=== PATIENT | male | born 1960 | race Caucasian/White ===

== ENCOUNTER 2021-11-10 10:31 | Inpatient (IN) | payer OTHER, MEDICAID ==
[2021-11-10] VITALS (14 sets, daily range): BP systolic 71–124; BP diastolic 43–84
[~2021-11-10] VITALS: Ht 170.2 cm; Wt 134.7 kg
[~2021-11-10 10:31] MED LIST: AMLO10TA88 PO; ASPI-1271 PO; BENA40TA PO; CEPH500T PO; CHOL100084 PO; FERR325E14 PO; HYDR25SU37 RC; LOTC TP; OMEP-303 PO; TAMS0.4C96 PO; TUCKS TP; [UNRECOGNIZED DRUG - CODE] NS; [UNRECOGNIZED DRUG - CODE] TP
--- NOTE | 2021-11-10 10:32 | NUR ---
PT W/C ASSISTED TO BED 01.
[2021-11-10] MEDS ORDERED: NACL 0.9% 1,000 ML IV ONE (10:40)
[2021-11-10] MEDS ORDERED: MORPHINE SULFATE 4 MG/ML SYR ONE (10:46)
[2021-11-10] MEDS ORDERED: LORazepam 1 MG TAB ONE (10:52)
[2021-11-10] MEDS ORDERED: LORazepam 2 MG/ML VIAL ONE (10:52)
[2021-11-10] MEDS ORDERED: LORazepam 2 MG/ML VIAL IVP ONE ×2 (10:55→11:15)
[2021-11-10 11:05] LABS: BASOPHILS # (AUTO) 0.1 K/uL (0.00-0.22); BASOPHILS % (AUTO) 0.4 % (0.0-2.0); EOSINOPHILS # (AUTO) 0.1 K/uL (0-0.4); EOSINOPHILS % (AUTO) 0.4 % (0.0-4.0); HEMOGLOBIN 15.9 g/dL (12.0-18.0); LYMPHOCYTES # (AUTO) 1.3 K/uL (2.0-11.5); LYMPHOCYTES % (AUTO) 8.8 % (20.5-51.1); MEAN CORPUSCULAR HEMOGLOBIN 29 pg (27-31); MEAN CORPUSCULAR HGB CONC 33 g/dL (33-37); MEAN CORPUSCULAR VOLUME 87.3 fL (80-94); MONOCYTES # (AUTO) 0.3 K/uL (0.8-1.0); MONOCYTES % (AUTO) 2.3 % (1.7-9.3); NEUTROPHILS # (AUTO) 13.3 K/uL (1.8-7.7); NEUTROPHILS % (AUTO) 88.1 % (42.2-75.2); PLATELET COUNT (AUTO) 69 K/uL (140-450); RED BLOOD CELL COUNT(AUTO) 5.49 MIL/uL (4.20-6.10); WHITE BLOOD COUNT (AUTO) 15.1 K/uL (4.8-10.8)
[2021-11-10] MEDS ORDERED: MORPHINE SULFATE 4 MG/ML SYR IVP ONE (11:15)
[2021-11-10] MEDS ORDERED: PIPERACILLIN/TAZOBACTAM 3.375 GM in DEXTROSE 5% 50 ML IV ONE (11:15)
[2021-11-10] MEDS ORDERED: ACETAMINOPHEN EXTRA STRENGTH 500 MG TAB PO ONE (11:15)
[2021-11-10 11:19] LABS: LIPASE 85 U/L (73-393)
[2021-11-10 11:21] LABS: ALBUMIN 4.5 g/dL (3.4-5.0); ANION GAP 10.2 (8-16); CARBON DIOXIDE 31.9 mmol/L (21-32); POTASSIUM 4.1 mmol/L (3.5-5.1); TOTAL BILIRUBIN 1.7 mg/dL (0.0-1.0)
[2021-11-10] MEDS ORDERED: PIPERACILLIN/TAZOBACTAM 3.375 GM VIAL IV ONE (11:26)
--- NOTE | 2021-11-10 11:27 | NUR ---
PT MOVED TO BED 10.
[2021-11-10 11:38] LABS: APPEARANCE,URINE CLEAR (CLEAR); BILIRUBIN,URINE NEGATIVE (NEGATIVE); BLOOD, URINE NEGATIVE (NEGATIVE); COLOR,URINE YELLOW (YELLOW); LEUKOCYTE ESTERASE ,URINE NEGATIVE (NEGATIVE); NITRITE, URINE NEGATIVE (NEGATIVE); UGLUCOSE 3+ (NEGATIVE)
--- NOTE | 2021-11-10 11:47 | NUR ---
61Y/O MALE BIB SELF C/O OF FEVER, CHILLS, LEG PAIN. ABDOMEN IS ROUND, FIRM, [place] RED SPOTS, AND A LARGE BRUISE NOTED ON THE RIGHT LOWER ABDOMEN. CANNOT RECALL ANY MEDS, DIABETIC, BS 90 AT HOME 120 AT TRIAGE. PITTING EDEMA +3 IN THE RIGHT LOWER EXTREMITY, NO RIGHT TOE. A/OX3, ABLE TO STATE NAME, DATE AND WHERE HE IS. DOES NOT KNOW WHAT IS GOING ON. TEMP AT TRIAGE 102, COOLING MEASURES DONE, GIVEN TYLENOL. PMH: DM, HTN, HEART SURGERY, SLEEP APNEA Addendum: 11/10/21 at 1253 by MNURBMD AMEND, INCLUDE HISTORY OF CHF
[2021-11-10 11:55] LABS: OTHER CASTS, URINE None Seen /LPF (None Seen); RBC,URINE 0-5 /HPF (0-5); WBC,URINE 0-5 /HPF (0-5)
[2021-11-10 11:58] LABS: BARBITURATE, URINE NEGATIVE ng/ml (NEG <=200); BENZODIAZEPINE, URINE NEGATIVE ng/mL (NEG <=200); CANNABINOID, URINE NEGATIVE ng/mL (NEG <=50); COCAINE, URINE NEGATIVE ng/mL (NEG <=300); OPIATE, URINE POSITIVE ng/mL (NEG <=2000); PHENCYCLIDINE SCREEN,URINE NEGATIVE ng/mL (NEG <=25)
--- NOTE | 2021-11-10 12:02 | NUR ---
PT TAKEN TO BED CT VIA IGGY
--- NOTE | 2021-11-10 12:36 | NUR ---
RECHECKED TEMP 100.2 ORAL, DR SHAIKH MADE AWARE
--- NOTE | 2021-11-10 12:36 | NUR ---
RAD AT BEDSIDE
--- NOTE | 2021-11-10 12:42 | NUR ---
RT AT BEDSIDE
--- NOTE | 2021-11-10 12:45 | NUR ---
PT PLACED ON BIPAP 15/6 16 35% PER DR. SHAIKH D/T ABG RESULT PH 7.268 PCO2 60.7. PT IS TOLERATING WELL AT THIS TIME.
[2021-11-10] MEDS ORDERED: VIT D3 PO (12:50)
[2021-11-10] MEDS ORDERED: METO50TE2 PO (12:50)
[2021-11-10] MEDS ORDERED: EMPA25TA PO (12:50)
[2021-11-10] MEDS ORDERED: VIT D (12:50)
--- NOTE | 2021-11-10 12:58 | NUR ---
PT PLACED ON A BIPAP
--- NOTE | 2021-11-10 13:09 | NUR ---
SPOKE TO JUNG BRIM SETTER OF [facility]
--- NOTE | 2021-11-10 13:22 | NUR ---
DR SHAIKH MADE AWARE, PT TEMP 100.8, ORDERS FOR IBUPROFEN 600MG PO RECEIVED
[2021-11-10] MEDS ORDERED: IBUPROFEN 600 MG TAB PO ONE (13:25)
[2021-11-10] MEDS ORDERED: GENTAMICIN 120 MG in DEXTROSE 5% 100 ML IV ONE (13:30)
[2021-11-10] MEDS ORDERED: GENTAMICIN 80 MG/2 ML VIAL ONE (13:36)
[2021-11-10] MEDS ORDERED: POTASSIUM CHLORIDE 10 MEQ TABER PO PRN (14:50)
[2021-11-10] MEDS ORDERED: MAGNESIUM OXIDE 400 MG TAB PO PRN (14:50)
[2021-11-10] MEDS ORDERED: HYDROcodone/APAP 5/325 MG 1 TAB TAB PO PRN (14:50)
[2021-11-10] MEDS ORDERED: ONDANSETRON 4 MG/2 ML VIAL IVP PRN (14:50)
[2021-11-10] MEDS ORDERED: MORPHINE SULFATE 4 MG/ML SYR IVP PRN (14:50)
--- NOTE | 2021-11-10 15:00 | NUR ---
Patient will be admitted to care of ROBERT JETT. Admited to ICU. Will go to room ICU 2. Belongings list completed. Report to CHERIE OROZCO.
--- NOTE | 2021-11-10 15:08 | NUR ---
PT ARRIVED TO UNIT ICU2. RECEIVED BEDSIDE REPORT FROM TAYLOR RENTERIA RN FOR CONTINUITY OF CARE. PT SUPINE IN THE BED. PT LETHARGIC, AAOX3. EYES CLOSED, PERRLA. ON BIPAP, FIO2 35%, R 20, IPAP 14, EPAP 6. PT BREATHING LABORED, SNORING. SR W 1ST DEG HB AND BBB ON BEDSIDE MONITOR, HR 97. BOWEL SOUNDS ACTIVE, LAST BM YESTERDAY AM PER . CONTINENT OF BOWEL AND BLADDER, URINAL AT BEDSIDE. GENERALIZED WEAKNESS. R AC 18G SALINE LOCK, PATENT INTACT. SKIN INTACT. RLE EDEMATOUS +4 AND BIG TOE AMPUTATED. SAFETY PRECAUTIONS MET. STANDARD PRECAUTIONS IN PLACE. INITIAL ASSESSMENT COMPLETE, WILL CONTINUE TO CLOSELY MONITOR.
--- NOTE | 2021-11-10 15:30 | NUR ---
PT AT BEDSIDE
--- NOTE | 2021-11-10 15:45 | NUR ---
US AT BEDSIDE
--- NOTE | 2021-11-10 16:00 | NUR ---
PT ARRIVED TO UNIT ICU2. RECEIVED BEDSIDE REPORT FROM TAYLOR RENTERIA RN FOR CONTINUITY OF CARE. PT SUPINE IN THE BED. PT LETHARGIC, AAOX3. EYES CLOSED, PERRLA. ON BIPAP, FIO2 35%, R 20, IPAP 14, EPAP 6. PT BREATHING LABORED, SNORING. SR W 1ST DEG HB AND BBB ON BEDSIDE MONITOR, HR 97. BOWEL SOUNDS ACTIVE, LAST BM YESTERDAY AM PER . CONTINENT OF BOWEL AND BLADDER, URINAL AT BEDSIDE. GENERALIZED WEAKNESS. R AC 18G SALINE LOCK, PATENT INTACT. SKIN INTACT. RLE EDEMATOUS +4 AND BIG TOE AMPUTATED. SAFETY PRECAUTIONS MET. STANDARD PRECAUTIONS IN PLACE. INITIAL ASSESSMENT COMPLETE, WILL CONTINUE TO CLOSELY MONITOR. Addendum: 11/10/21 at 1850 by Coty Greer RN WRONG TIME.
--- NOTE | 2021-11-10 16:20 | NUR ---
PT AT BEDSIDE. UPDATED REGARDING PT CONDITION, ALL QUESTIONS ANSWERED AT THIS TIME. Addendum: 11/10/21 at 1851 by Coty Greer RN WRONG TIME
[2021-11-10] MEDS ORDERED: FUROSEMIDE 40 MG/4 ML VIAL IVP SCH (17:15)
--- NOTE | 2021-11-10 17:15 | NUR ---
DR TELLO AT BEDSIDE ASSESSING PT AND SPEAKING WITH PT . ORDERS RECEIVED.
[2021-11-10] MEDS ORDERED: acetaZOLAMIDE sodium 500 MG VIAL IVP SCH (17:30)
--- NOTE | 2021-11-10 17:38 | NUR ---
1738 20 MG ETOMIDATE IN PER DR TELLO ORDER. 1739 60MG SUCC IN PER DR TELLO ORDER. 1740 PT INTUBATED TAPED [address] OSMAN VERSED AND FENTANYL FOR SEDATION DRIPS.
[2021-11-10] MEDS ORDERED: fentaNYL citrate 2.5 MG in NACL 0.9% 200 ML IV PRN (17:45)
--- NOTE | 2021-11-10 17:45 | NUR ---
PT INTUBATED WITH A 8.0 ETT SECURED @25 TEETH/GUM. ETT PLACEMENT CONFIRMED WITH CO2 DETECTOR COLOR CHANGE AND BILATERAL BREATH SOUNDS. CXR TO BED ORDERED FOR PROPER PLACEMENT.
--- NOTE | 2021-11-10 17:53 | NUR ---
PT PLACED ON VENT, SETTINGS AC 20, VT 500, PEEP 8 AND FIO2 70%. ALARMS ON AND FUNCTIONING. ETT IS SECURE WITH A PATENT AIRWAY SECURED @25 TEETH/GUM, CXR TO BE ORDERED.
[2021-11-10] MEDS ORDERED: AZITHROMYCIN 500 MG in DEXTROSE 5% 250 ML IV SCH (18:00)
[2021-11-10] MEDS: DEXT 5% /NACL 0.9% 1,000 ML IV SCH (18:29)
[2021-11-10] MEDS: LORazepam 2 MG/ML VIAL IVP PRN (18:36)
[2021-11-10] MEDS: NOREPINEPHRINE 4 MG in DEXTROSE 5% 250 ML IV PRN (19:00)
[2021-11-10] MEDS: MIDAZOLAM MDV 100 MG in NACL 0.9% 80 ML IV PRN (19:00)
--- NOTE | 2021-11-10 19:05 | NUR ---
ENDORSED BEDSIDE REPORT TO ED HOLT RN FOR CONTINUITY OF CARE.
--- NOTE | 2021-11-10 19:30 | NUR ---
RECEIVED REPORT FROM BERTRAND OROZCO; ASSUMED CARE OF PT.INITIAL ASSESSMENT DONE.PT SEDATED.PT ORALLY INTUBATED AC V/C FIO2 70% TV 550 RATE 20 PEEP8.PERIPHERAL IV TO RT AC G18 INTACT.INFUSING ORDERED IVF, LEVOPHED 4MG IN 250ML D5W AT 5MCG/MIN, VERSED DRIP AT 1MG/HR.RASS -2.NGT TO LT NARES INTACT.CLAMPED.MAINTAINED ON NPO.W/ACTIVE BOWEL SOUNDS TO ALL QUADRANTS.W/PEDROZA CATHETER TO BSD DRAINING SMALL AMT OF CLEAR PINKISH COLORED URINE.W/BILATERAL SOFT WRIST RESTRAINTS.NO INJURIES NOTED AT THIS TIME.SKIN INTACT.BRUISING TO LT ABDOMEN ALSO NOTED.FLACC 0. Addendum: 11/11/21 at 0053 by Jazmine Martell RN RIGHT GREAT TOE AMPUTATION. [email or web address]
--- NOTE | 2021-11-10 19:43 | NUR ---
SPOKE W/ DR PINTO - [facility] MENTAL HEALTH AIDES TEACHER ) AND REPORTED ABG RESULTS FOR POST INTUBATION ABG RESULTS ARE FOLLOWS .. PH 7.282 CO2 64.3 HCO3 29.[address] PINTO INCREASE Vt ( 550 ) AND REPEAT ABG IN 3H
--- NOTE | 2021-11-10 19:45 | NUR ---
PT SEDATED;NOT MOVING; APPEARS COMFORTABLE, BILATERAL SOFT WRIST RESTRAINTS REMOVED, WILL CONTINUE TO CLOSELY MONITOR PT
--- NOTE | 2021-11-10 20:02 | NUR ---
VT HAS BEEN CHANGED FROM 500 TO 550 AND ABG HAS BEEN ORDERED FOR 3H POST VT CHANGE (23:00) NO OTHER CHANGES TO VENT AT THIS TIME VENT SETTINGS CURRENTLY AC/VC 550 +8 f20 70% VENT ALARMS REMAIN ON AND AUDIBLE VENT PLUGGED INTO RED OUTLET AMBU IS AT BEDSIDE WILL CONTINUE TO MONITOR
--- NOTE | 2021-11-10 20:28 | NUR ---
PHONE CALL FROM RADIOLOGIST, KYA GOETZ, HE SAID ETT IS TOO DEEP; TO WITHDRAW 3CM TO 4CM; CALLED RT SIMON
--- NOTE | 2021-11-10 20:40 | NUR ---
ETT FOUND SECURED @ 26CM AND WAS WITHDRAWN 3CM TO 23CM PER CXR TUBE PLACEMENT INTERPRETATION PENDING CXR TO CONFIRM NEW ETT PLACEMENT
--- NOTE | 2021-11-10 20:45 | NUR ---
ETT ADJUSTED BY RT SMION, CXR ORDERED.
[2021-11-10] MEDS: metroNIDAZOLE 500 MG TAB PO SCH (21:28)
[2021-11-10] MEDS: fentaNYL citrate - 50mL vial 2.5 MG in NACL 0.9% 200 ML IV PRN (22:47)
--- NOTE | 2021-11-10 23:10 | NUR ---
CALLED AND SPOKE W/ TITO @ [facility] [phone] AWAITING CALL BACK FROM EMERGENCY MEDICAL DISPATCHER TO REPORT ABG RESULTS ABG RESULTS ARE FOLLOWS .. PH 7.304 CO2 53.5 HCO3 26 PO2 52.9
[2021-11-11] VITALS (34 sets, daily range): BP systolic 97–131; BP diastolic 46–94
--- NOTE | 2021-11-11 | NUR ---
FAMILY STILL AT BEDSIDE, PT AWAKE; REORIENTED, TRYING TO PULL LINES, BILATERAL SOFT WRIST RESTRAINTS ORDERED, IN PLACE.WILL CONTINUE TO MONITOR PT
--- NOTE | 2021-11-11 02:41 | NUR ---
RLE SWELLING, TIGHTNESS, AND WARM TO TOUCH; PER PATIENT'S SON, PATIENT WITH HISTORY OF MELANOMA AND REMOVAL OF LYMPH NODES IN THE RLE. WILL ENDORSE TO DAY SHIFT TO CONTACT MD AND REQUEST ORDER FOR VENOUS DOPPLER TO R/O DVT. [email or web address]
--- NOTE | 2021-11-11 03:40 | NUR ---
REPLACED LEVOPHED, WILL RUN AT 4MG/250ML Addendum: 11/11/21 at 0523 by Jazmine Martell RN [email or web address] Addendum: 11/11/21 at 0631 by Jazmine Martell RN LEVOPHED 4MG IN 250ML D5W WILL RUN AT 7MCG/MIN
[2021-11-11] MEDS ORDERED: NOREPINEPHRINE 4 MG/4 ML VIAL IV ONE (03:54)
[2021-11-11] MEDS: NOREPINEPHRINE 4 MG in DEXTROSE 5% 250 ML IV PRN ×2 (04:13→18:28)
--- NOTE | 2021-11-11 04:30 | NUR ---
PROVIDED AM CARE TO PATIENT. PATIENT WITH EXCESSIVE MOTOR AROUND NECK AND BACK. GLUCOSE CHECKED = 131. CHARGE NURSE NOTIFIED Addendum: 11/11/21 at 0604 by Jazmine Martell RN PATIENT DIAPHORETIC, PATIENT OPEN EYES, TRACKING, ABLE TO NOD TO QUESTIONS REGARDING DIABETES AND IF HE TAKES INSULIN AT HOME. PATIENT WAS PROVIDED WITH CLEAN AND DRY BEDDING, AND GOWN. ERROR WITH CHARTING RE: EXCESSIVE MOTOR AROUND NECK AND BACK.
[2021-11-11] MEDS: metroNIDAZOLE 500 MG TAB PO SCH ×3 (04:40→21:11)
--- NOTE | 2021-11-11 06:00 | NUR ---
PEDROZA BAG DRAINED, 500 ML OF URINE. [email or web address]
--- NOTE | 2021-11-11 06:46 | NUR ---
NOTED SWELLING IN RLE NOW EXTENDING TO MID THIGH, NO CHANGE IN WARMTH. [email or web address]
[2021-11-11 06:54] LABS: ALBUMIN 3.2 g/dL (3.4-5.0); ANION GAP 7.7 (8-16); CARBON DIOXIDE 31.2 mmol/L (21-32); MAGNESIUM 1.8 mg/dL (1.8-2.4); POTASSIUM 3.9 mmol/L (3.5-5.1); TOTAL BILIRUBIN 1.7 mg/dL (0.0-1.0)
--- NOTE | 2021-11-11 07:10 | NUR ---
RECEIVED PT SEDATED. ET TUBE TO VENT SETTINGS AC VC VT 550 RATE 20 PEEP 8 FIO2@70%. SINUS RHYTHM WITH BBB ON MONITOR. NGTUBE ON LEFT NARE INTACT AND CLAMPED. PEDROZA CATHETER INTACT AND DRAINING TO BSD. PICC LINE ON RIGHT UPPER ARM INTACT AND INFUSING LEVOPHED @7MCG/MIN, FENTANYL @ 0.5 MCG/KG/HR, AND VERSED @3MG/HR. PERIPHERAL IV 18 GAUGE ON RAC INTACT AND PATENT INFUSING D5NS @60ML/HR. PT WITH RIGHT LOWER EXTREMITY SWELLING. SAFETY PRECAUTIONS IN PLACE.
--- NOTE | 2021-11-11 07:16 | NUR ---
ENDORSED CARE OF PATIENT TO ERNESTO DUNN. [email or web address]
[2021-11-11 07:24] LABS: HEMATOCRIT 43.3 % (36-52); HEMOGLOBIN 14.2 g/dL (12.0-18.0); MEAN CORPUSCULAR HEMOGLOBIN 29 pg (27-31); MEAN CORPUSCULAR HGB CONC 33 g/dL (33-37); MEAN CORPUSCULAR VOLUME 87.9 fL (80-94); PLATELET COUNT (AUTO) 72 K/uL (140-450); RED BLOOD CELL COUNT(AUTO) 4.92 MIL/uL (4.20-6.10); RED CELL DISTRIBUTION WIDTH 15.2 % (11.6-13.7); WHITE BLOOD COUNT (AUTO) 21.4 K/uL (4.8-10.8)
--- NOTE | 2021-11-11 08:05 | NUR ---
FAMILY AT BEDSIDE.
[2021-11-11 08:15] LABS: LYMPHOCYTES % (MANUAL) 4 % (20-46); MONOCYTES % (MANUAL) 7 % (5-12)
--- NOTE | 2021-11-11 09:20 | NUR ---
SHARRON CAR PORTER FROM [facility] CALLED AND PROVIDED PHONE NUMBER .
--- NOTE | 2021-11-11 09:33 | NUR ---
SEEN AND EXAMINED BY DR. VALIENTE. NEW ORDERS RECEIVED. Addendum: 11/11/21 at 1232 by Rachna Hoover RN REPORTED INCREASED RIGHT LEG SWELLING TO DR. VALIENTE. REPORTED GRAM POSITIVE COCCI BLOOD CULTURE TO DR. VALIENTE. NEW ORDER RECEIVED TO STOP ZITHROMAX AND START LINEZOLID 600MG Q12H.
[2021-11-11] MEDS ORDERED: INSULIN LISPRO SLIDING SCALE 100 UNITS/ML VIAL SUBQ PRN (09:40)
[2021-11-11] MEDS: DEXT 5% /NACL 0.9% 1,000 ML IV SCH (11:04)
[2021-11-11] MEDS: LINEZOLID 600MG PREMIX 300 ML IV SCH ×2 (11:04→21:11)
[2021-11-11] MEDS: BLOOD GLUCOSE MONITORING 1 DEV DEV FS SCH ×3 (11:14→21:12)
--- NOTE | 2021-11-11 12:32 | NUR ---
CHEST XRAY BEING DONE AT BEDSIDE.
--- NOTE | 2021-11-11 14:30 | NUR ---
DR. NIETO AT BEDSIDE EXAMINING PT. SON AT BEDSIDE. ALL QUESTIONS ANSWERED.
[2021-11-11] MEDS: ACETAMINOPHEN 325 MG TAB PO PRN (16:13)
--- NOTE | 2021-11-11 16:13 | NUR ---
PT WITH LOW GRADE FEVER. PLEASE VIEW VITAL SIGNS. TYLENOL 650 MG GIVEN PER MD ORDER. COOLING MEASURES IN PLACE. WILL CONTINUE TO MONITOR.
--- NOTE | 2021-11-11 17:30 | NUR ---
DR. RASHID AT BEDSIDE EXAMINING PATIENT WITH AT BEDSIDE. ALL QUESTIONS ANSWERED. RECEIVED NEW ORDER FOR ECHOCARDIOGRAM.
--- NOTE | 2021-11-11 19:10 | NUR ---
ENDORSED TO BRAILLE TYPIST NURSE YA FOR CONTINUITY OF CARE.
[2021-11-11] MEDS: MIDAZOLAM MDV 100 MG in NACL 0.9% 80 ML IV PRN (19:15)
--- NOTE | 2021-11-11 19:30 | NUR ---
ASSUMED CARE OF PT.INITIAL ASSESSMENT DONE.PT SEDATED RASS -2 MAINTAINED, OPEN EYES TO TOUCH AND VOICE.SR/SA NOTED ON MONITOR W/BBB W/ PVC'S.ORALLY INTUBATED FIO2 60% TV550 RATE 20 PEEP 6. W/BRANDON PICC LINE INTACT, GOOD BLOOD RETURN TO BOTH PORTS INFUSING ORDERED IVF AT 60ML/HR, VERSED DRIP AT 5MG/HR, FENTANYL AT 1MCG/KG/HR AND LEVOPHED 4MG IN 250ML D5W AT 1MCG/MIN.W/NGT TO LT NARES INTACT.PLACEMENT VERIFIED.NO RESIDUALS.ON CONTINUOUS NGT FDG GLUCERNA 1.2 AT 20ML/HR W/ORDERED WATER FLUSH.ABDOMEN SOFT NON TENDER.W/PEDROZA CATHETER TO BSD DRAINING SMALL AMT OF ERIC COLORED URINE.SKIN INTACT, BRUISING TO LT ABDOMEN ALSO NOTED.SWELLING ON THE RT LEG ALSO NOTED, RT BIG TOE AMPUTEE.W/BILATERAL SOFT WRIST RESTRAINTS.NO INJURIES NOTED.SAFETY PRECAUTION IN PLACE.WILL CONTINUE TO CLOSELY MONITOR PT
--- NOTE | 2021-11-11 19:51 | NUR ---
robotic maintenance technicianayesha king at bedside, ongoing echocardiogram at this time
--- NOTE | 2021-11-11 22:00 | NUR ---
PTS FAMILY IN AND OUT OF THE UNIT; UPDATED ON PTS PRESENT CONDITION.PT REMAINS SEDATED AND VENTILATED.FIO2 60%.FLACC 0.
[2021-11-11] MEDS: fentaNYL citrate - 50mL vial 2.5 MG in NACL 0.9% 200 ML IV PRN (23:32)
[2021-11-12] VITALS (40 sets, daily range): BP systolic 92–146; BP diastolic 51–88
--- NOTE | 2021-11-12 | NUR ---
ORAL CARE USING VAP KIT RENDERED.PT VERY AGITATED; TRYING TO GET OUT OF BED.SEDATION TITRATED ORDERED.SEE IV SPREADSHEET.
[2021-11-12] MEDS: LORazepam 2 MG/ML VIAL IVP PRN (00:23)
--- NOTE | 2021-11-12 01:45 | NUR ---
PT BECOMING RESTLESS AGAIN; VERSED DRIP INCREASED PER PROTOCOL; RT SIMON AT BEDSIDE.FAMILY AT BEDSIDE.WILL CONTINUE TO CLOSELY MONITOR PT
--- NOTE | 2021-11-12 01:59 | NUR ---
PT IS IRRITABLE, SOMEWHAT RESTLESS. MODE WAS CHANGED FROM VC 550 +6 f 20 TO PRVC 550 +6 f 20 FOR PT COMFORT AND PEAK PRESSURES. PT TOLERATING A LITTLE BETTER, APPEARS MORE COMFORTABLE, AND RECEIVING ADEQUATE VOLUMES. PT IS STILL SOMEWHAT AGITATED. VENT ALARMS REMAIN ON AND AUDIBLE. FAMILY IS AT BEDSIDE. WILL CONTINUE TO MONITOR.
--- NOTE | 2021-11-12 04:00 | NUR ---
AFEBRILE.ORAL SECRETIONS SUCTIONED.FLACC 0.RASS-2; REPOSITIONED
[2021-11-12] MEDS: DEXT 5% /NACL 0.9% 1,000 ML IV SCH ×2 (05:08→19:55)
[2021-11-12] MEDS: metroNIDAZOLE 500 MG TAB PO SCH ×3 (05:09→20:18)
--- NOTE | 2021-11-12 05:29 | NUR ---
PT CURRENTLY RESTING COMFORTABLY AND RECEIVING ADEQUATE VOLUMES. PT REMAINS ON PRVC. ALARMS REMAIN ON AND AUDIBLE. VENT IS PLUGGED INTO RED OUTLET. AMBU BAG AT BEDSIDE. ETT REMAINS PATENT/SECURED AT 23CM. WILL CONTINUE TO MONITOR.
[2021-11-12 05:40] LABS: BASOPHILS % (AUTO) 0.3 % (0.0-2.0); EOSINOPHILS # (AUTO) 0.1 K/uL (0-0.4); EOSINOPHILS % (AUTO) 0.5 % (0.0-4.0); HEMATOCRIT 40.1 % (36-52); HEMOGLOBIN 13.1 g/dL (12.0-18.0); LYMPHOCYTES # (AUTO) 0.5 K/uL (2.0-11.5); LYMPHOCYTES % (AUTO) 4.4 % (20.5-51.1); MEAN CORPUSCULAR HEMOGLOBIN 29 pg (27-31); MEAN CORPUSCULAR HGB CONC 33 g/dL (33-37); MEAN CORPUSCULAR VOLUME 87.8 fL (80-94); MONOCYTES # (AUTO) 0.8 K/uL (0.8-1.0); MONOCYTES % (AUTO) 6.7 % (1.7-9.3); NEUTROPHILS # (AUTO) 10.1 K/uL (1.8-7.7); PLATELET COUNT (AUTO) 53 K/uL (140-450); RED BLOOD CELL COUNT(AUTO) 4.57 MIL/uL (4.20-6.10); RED CELL DISTRIBUTION WIDTH 15.6 % (11.6-13.7); WHITE BLOOD COUNT (AUTO) 11.4 K/uL (4.8-10.8)
[2021-11-12] MEDS: BLOOD GLUCOSE MONITORING 1 DEV DEV FS SCH ×3 (06:00→17:33)
--- NOTE | 2021-11-12 06:00 | NUR ---
BS CHECKED 146 NO INSULIN COVERAGE REQUIRED.PT REMAINS INTUBATED PRVC MODE FIO2 60% TV550 RATE 20 PEEP6, STILL SEDATED W/RASS -2 AT THIS TIME.SKIN REMAINS INTACT.FLACC 0
[2021-11-12 06:11] LABS: ALBUMIN 2.8 g/dL (3.4-5.0); ANION GAP 8.1 (8-16); CARBON DIOXIDE 30.2 mmol/L (21-32); CREATININE 0.9 mg/dL (0.6-1.3); POTASSIUM 4.3 mmol/L (3.5-5.1)
[2021-11-12 06:48] LABS: NEUTROPHILS % (AUTO) 88.1 % (42.2-75.2)
--- NOTE | 2021-11-12 07:30 | NUR ---
RECEIVED REPORT FROM YANET PANDYA FOR CONTINUITY OF CARE.
--- NOTE | 2021-11-12 07:45 | NUR ---
A&OX0, PERRL. ETT TO VENT, PRVC VT 550, FIO2 60%, RR 20, PEEP 6. RESPIRATIONS EVEN AND UNLABORED. SINUS ARRHYTHMIA WITH 1ST DEGREE HEART BLOCK, BUNDLE BRANCH BLOCK AND OCCASIONAL PVC'S AND PAC'S. CAP REFILL <3 SECONDS. NGT LEFT NARE TO FEEDING, GLUCERNA @40ML/HR. F/C TO GRAVITY DRAINING CLEAR ERIC URINE. BILATERAL SOFT WRIST RESTRAINTS WITH NO BRUISING, SKIN IS INTACT. BRANDON PICC INFUSING VERSED @8MG/HR, D5NS @60ML/HR, FENTANYL @1MCG/KG/HR. SKIN IS INTACT. BILATERAL LOWER LEG CELLULITIS, EDEMA ON RIGHT LEG. SAFETY PRECAUTIONS IN PLACE, CALL LIGHT WITHIN REACH, BED IN LOWEST POSITION.
--- NOTE | 2021-11-12 08:50 | NUR ---
SEEN AND EXAMINED BY DR VALIENTE. ORDERS RECEIVED.
[2021-11-12] MEDS ORDERED: POTASSIUM CHLORIDE 20% 40 MEQ/15 ML UDC GT PRN (08:55)
[2021-11-12] MEDS: LINEZOLID 600MG PREMIX 300 ML IV SCH ×2 (09:06→20:18)
[2021-11-12] MEDS: MIDAZOLAM MDV 100 MG in NACL 0.9% 80 ML IV PRN (11:00)
--- NOTE | 2021-11-12 11:00 | NUR ---
FAMILY AT BEDSIDE.
--- NOTE | 2021-11-12 11:39 | NUR ---
11/12/2021 RD INITIAL ASSESSMENT COMPLETED. PLEASE REFER TO NUTRITION ASSESSMENT UNDER CARE ACTIVITY FOR ESTIMATED NUTRITIONAL NEEDS. 1.RECOMMEND LOWERING TF GOAL RATE TO 60ML/HR PT TOLERATES, 80ML/HR WILL GIVE EXCESS CALORIES. RECOMMEND GLUCERNA 1.2 @ 60ML/HR WITH FWF 100 ML Q6H. THIS WILL PROVIDE 1728 KCAL, 86.4 GRAMS OF PROTEIN, MEETING 100% OF ESTIMATED ENERGY NEEDS. 2.MONITOR GASTRIC RESIDUALS AND BLOOD GLUCOSE. 3.RD TO FOLLOW-UP IN 2-3 DAYS PATIENT IS HIGH RISK. SWETA SCHILLING RD
--- NOTE | 2021-11-12 11:45 | NUR ---
FEEDING INCREASED TO 50ML/HR FOR A GOAL OF 60ML/HR. PT TOLERATING FEEDING WELL.
--- NOTE | 2021-11-12 12:00 | NUR ---
NGT RESIDUAL 5ML. FEEDING RESUMED.
--- NOTE | 2021-11-12 12:17 | NUR ---
SEEN AND EXAMINED BY DR. NIETO.
--- NOTE | 2021-11-12 13:45 | NUR ---
FAMILY AT BEDSIDE
[2021-11-12] MEDS: ACETAMINOPHEN 325 MG TAB PO PRN (17:29)
--- NOTE | 2021-11-12 17:30 | NUR ---
CATHETER CARE PERFORMED. CLEANED AND REPOSITIONED. AT BEDSIDE.
--- NOTE | 2021-11-12 19:05 | NUR ---
ENDORSED REPORT TO YA HOLT RN FOR CONTINUITY OF CARE.
--- NOTE | 2021-11-12 19:30 | NUR ---
ASSUMED CARE OF PT.INITIAL ASSESSMENT DONE.SR NOTED ON MONITOR W/BBB W/ PVC'S.ORALLY INTUBATED PRVC MODE FIO2 45% TV550 RATE 20 PEEP 6. W/BRANDON PICC LINE INTACT, GOOD BLOOD RETURN TO BOTH PORTS INFUSING ORDERED IVF AT 60ML/HR, VERSED DRIP AT 8 MG/HR, FENTANYL AT 1MCG/KG/HR .W/NGT TO LT NARES INTACT.PLACEMENT VERIFIED.30ML RESIDUALS NOTED.ON CONTINUOUS NGT FDG GLUCERNA 1.2 AT 60ML/HR W/ORDERED WATER FLUSH.ABDOMEN SOFT NON TENDER.W/PEDROZA CATHETER TO BSD DRAINING SMALL AMT OF ERIC COLORED URINE.SKIN INTACT, BRUISING TO LT ABDOMEN ALSO NOTED.SWELLING ON THE RT LEG ALSO NOTED, RT BIG TOE AMPUTEE.W/BILATERAL SOFT WRIST RESTRAINTS.NO INJURIES NOTED.SAFETY PRECAUTION IN PLACE.WILL CONTINUE TO CLOSELY MONITOR PT
[2021-11-12] MEDS: fentaNYL citrate - 50mL vial 2.5 MG in NACL 0.9% 200 ML IV PRN (19:57)
--- NOTE | 2021-11-12 20:00 | NUR ---
ORAL CARE USING VAP KIT RENDERED.PT REPOSITIONED.FLACC 0
[2021-11-13] VITALS (32 sets, daily range): BP systolic 98–152; BP diastolic 50–93
--- NOTE | 2021-11-13 | NUR ---
ORAL CARE USING VAP KIT RENDERED.FLACC 0.REPOSITIONED
[2021-11-13] MEDS: BLOOD GLUCOSE MONITORING 1 DEV DEV FS SCH ×3 (00:13→11:49)
[2021-11-13] MEDS: MIDAZOLAM MDV 100 MG in NACL 0.9% 80 ML IV PRN (00:57)
--- NOTE | 2021-11-13 02:00 | NUR ---
PTS CONDITION REMAINS UNCHANGED.STILL ON FENTANYL AND VERSED DRIPS.VENT FIO2 STILL AT 45%.FLACC 0
--- NOTE | 2021-11-13 04:30 | NUR ---
MORNING CARE DONE.ORAL CARE RENDERED.RESTLESS AT THIS TIME BUT PT ABLE TO NOD TO QUESTION.ABLE TO RELAX AFTER REORIENTED.FLACC 0.
[2021-11-13] MEDS: metroNIDAZOLE 500 MG TAB PO SCH ×2 (05:26→12:42)
[2021-11-13 05:35] LABS: BASOPHILS % (AUTO) 0.5 % (0.0-2.0); EOSINOPHILS # (AUTO) 0.2 K/uL (0-0.4); EOSINOPHILS % (AUTO) 3.2 % (0.0-4.0); HEMATOCRIT 39.6 % (36-52); HEMOGLOBIN 13.1 g/dL (12.0-18.0); LYMPHOCYTES # (AUTO) 0.7 K/uL (2.0-11.5); LYMPHOCYTES % (AUTO) 9.7 % (20.5-51.1); MEAN CORPUSCULAR HEMOGLOBIN 29 pg (27-31); MEAN CORPUSCULAR HGB CONC 33 g/dL (33-37); MEAN CORPUSCULAR VOLUME 88.2 fL (80-94); MONOCYTES # (AUTO) 0.5 K/uL (0.8-1.0); NEUTROPHILS # (AUTO) 5.3 K/uL (1.8-7.7); NEUTROPHILS % (AUTO) 78.6 % (42.2-75.2); PLATELET COUNT (AUTO) 56 K/uL (140-450); RED BLOOD CELL COUNT(AUTO) 4.49 MIL/uL (4.20-6.10); RED CELL DISTRIBUTION WIDTH 15.3 % (11.6-13.7); WHITE BLOOD COUNT (AUTO) 6.8 K/uL (4.8-10.8)
--- NOTE | 2021-11-13 06:02 | NUR ---
BS CHECKED 121, NO INSULIN COVERAGE REQUIRED.
[2021-11-13 06:33] LABS: ALBUMIN 2.7 g/dL (3.4-5.0); ANION GAP 5.9 (8-16); CARBON DIOXIDE 31.3 mmol/L (21-32); CREATININE 0.9 mg/dL (0.6-1.3); MAGNESIUM 2.1 mg/dL (1.8-2.4); POTASSIUM 4.2 mmol/L (3.5-5.1); TOTAL BILIRUBIN 0.7 mg/dL (0.0-1.0)
--- NOTE | 2021-11-13 07:20 | NUR ---
RECEIVED REPORT FROM YANET PANDYA FOR CONTINUITY OF CARE.
--- NOTE | 2021-11-13 07:28 | NUR ---
PT SEDATED, A&OX0, PERRL. RASS -3. ETT TO VENT, AC/PRVC VT 550, FIO2 40%, RR 20, PEEP 6. SR WITH 1ST DEGREE, BBB, AND OCCASIONAL PAC'S. BP 111/72 ON RA. NGT TO LEFT NARE. FEEDING IS GLUCERNA 1.2 @60ML/HR. BOWEL SOUNDS ACTIVE. F/C TO GRAVITY DRAINING CLEAR YELLOW/ORANGE URINE. PICC TO BRANDON, PATENT, INFUSING VERSED @7MG/HR, FENTANYL @1MCG/KG/HR, AND D5NS @60ML/HR. SKIN INTACT. GENERALIZED WEAKNESS. EDEMA NOTED IN ALL EXTREMITIES. SIGNIFICANT EDEMA IN RLE. BILATERAL SOFT WRIST RESTRAINTS ON BUE, NO S/S OF INJURY. SAFETY PRECAUTIONS IN PLACE, BED IN LOWEST POSITION.
--- NOTE | 2021-11-13 08:41 | NUR ---
PT. WITH LOW WILFRIDO SCALE AT MODERATE TO HIGH RISK, CONTINUE TO FOLLOW PRESSURE INJURY PREVENTION INTERVENTIONS. -POSITIONING: TURN AND REPOSITION PATIENT Q 2H OR SOONER USE PILLOWS TO KEEP BONY PROMINENCES FROM DIRECT CONTACT WITH SURFACES USE REPOSITIONING WEDGES TO PROVIDE 30-DEGREE ANGLE FOR SIDE LYING POSITIONS OFFLOADING OR FOAM DRESSING TO ALL TUBING TO PREVENT MEDICAL DEVICES RELATED PRESSURE INJURY -RE-EVALUATING AND MANAGING INCONTINENCE MONITOR SKIN CONDITION DURING POSITION CHANGE DO NOT MASSAGE REDNESS, BONY PROMINENCES FREQUENT SATHYA-CARE AND PROVIDE BARRIER CREAMS PRN IF SOILING MOISTURE CONTROL BY OFFER BED RAYO/URINAL /ABSORBENT PAD TO WICK AND HOLD MOISTURE KEEP SKIN DRY AND PROTECT FROM FRICTION -MANAGE FRICTION/SHEAR/MOBILITY KEEP HOB AT THE LOWEST LEVEL OF ELEVATION NO MORE THAN 30 DEGREE UNLESS OTHERWISE CONTRAINDICATED USE LIFT SHEET OR TRANSFER DEVICE TO MOVE PATIENT AND PREVENT LATERAL SHEER. PROTECT HEELS, ELBOWS BONY PROMINENCES WITH SKIN BERRIES OR FOAM DRESSING IF EXPOSED TO FRICTION OFFLOAD BILATERAL HEELS BY PLACING PILLOWS UNDER CALVES AT ALL TIMES, UNLESS OTHERWISE CONTRAINDICATED -PRESSURE REDISTRIBUTION SURFACE THERAPY FAUSTINA ISOFLEX MATTRESS -NUTRITION: PLEASE FOLLOW RD RECOMMENDATIONS AND OFFER NUTRITION SUPPLEMENTS IF ORDERED. PLEASE CONTACT WOUND CARE NURSE FOR ANY QUESTION AND CHANGE OF WOUND CONDITION.
[2021-11-13] MEDS: LINEZOLID 600MG PREMIX 300 ML IV SCH (09:49)
--- NOTE | 2021-11-13 10:50 | NUR ---
COORDINATING WITH RT TO BEGIN WEANING TRIALS. FENTANYL ON STANDBY. VERSED @ 4MG/HR. TUBE FEEDING IS TURNED OFF TO DECREASE RISK OF ASPIRATION. PT STILL SEDATED RASS-3 AT THE MOMENT. VENT IS ON AC/PRVC VT 550, FIO2 35%, RR 20, PEEP 5.
--- NOTE | 2021-11-13 11:10 | NUR ---
VERSED AND FENTANYL ARE NOW ON STANDBY. PT ABLE TO FOLLOW SIMPLE COMMANDS. STARLA GUNN PLACED PT ON CPAP MODE. SPO2 94%. BP 146/103. RR 27.
--- NOTE | 2021-11-13 11:15 | NUR ---
PT PLACED ON SBT CPAP 5 PS 10 FIO2 35%. ALARMS SET APPROPRIATELY AND FUNCTIONING. NURSE AWARE. WILL CONTINUE TO MONITOR.
--- NOTE | 2021-11-13 13:00 | NUR ---
SEEN AND EXAMINED BY DR. NIETO.
--- NOTE | 2021-11-13 13:07 | NUR ---
PAGED DR RASHID, GLOBAL SAFETY OFFICER [facility]UL[facility], TO SEE THE PT AND TO COLLABORATE WITH RT REGARDING CPAP TRIALS.
--- NOTE | 2021-11-13 13:07 | NUR ---
CHECKED IN ON PT COMPLETED 1 HR 15 MIN OF SBT BEFORE PT BECAME TACHYPNEIC RR>35. VENT THEN INITIATED BACK INTO BACK UP MODE PRVC. NURSE MADE AWARE.
--- NOTE | 2021-11-13 13:32 | NUR ---
DC PLANNIN YRS OLD MALE PATIENT WAS ADMITTED FROM HOME WITH A DX OF HYPERCAPNIC AND HYPOXIC, RESP FAILURE, AND PNEUMONIA. PATIENT HAS A HX OF OBESITY DM, LIVER CIRRHOSIS HTN, MELANOMA, INTUBATED SEDATED FIO2 35% ON VERSED, LEVOPHED DRIP IVF, IV ABX ROCEPHIN AND ZYVOX . NEPHRO AND PULMO FOLLOWING. DC PLAN PER PATIENT RESPOND TO THE TREATMENT. CM TO FOLLOW Addendum: 11/15/21 at 1443 by Terri Guthrie RN DC PLANNING: [facility] [phone] SPOKE WITH ORAL TALLEY STATED TO ASK SMOOTH [facility] RESURFACER SUSANNE CAN BE DONE OUT PATIENT. DISCUSSED WITH DR GARCIA, STATED WILL DISCUSS WITH DR PORTILLO. MAYANK TO FOLLOW Addendum: 11/16/21 at 1156 by Kimi Limon CM DC PLANNING: MAYANK SPOKE WITH ORAL AT [facility] REGARDING NEED FOR IP SUSANNE. CLINICAL NOTES FAXED TO HER FOR [facility] WARD HELPER REVIEW. TERA ECHEVARRIA IS FOLLOWING UP ON POSSIBILITY OF DOING IT HERE, MAYANK ASKED ORAL ABOUT SENDING PATIENT TO [facility], ORAL STATED SHE DOESN'T THINK [facility] IS CONTRACTED WITH [facility]. CM WILL FOLLOW FOR SUSANNE AT [place] VS [facility] CONTRACTED FACILITY. Addendum: 11/16/21 at 1529 by Kimi Limon CM DC PLANNING: ORAL AT [facility] STATES THEY WILL AUTHORIZE [facility] FOR A SUSANNE IF THE PATIENT GOES AND COMES BACK TO [place]. CM CALLED CARDIOPULMONARY WHO TRANSFERRED CM TO SURGERY WHO TRANSFERRED CM TO THE DIELECTRIC MACHINE OPERATOR WHO TRANSFERRED CM BACK TO SURGERY SCHEDULING. SURGERY THEN TRANSFERRED CM TO THE SPARK [facility] WHO STATES THAT THEY DON'T HAVE AN IRR TO DO THE PROCEDURE THEIR MD IS ON INDEFINITE LEAVE. THEN SPOKE WITH ORAL AGAIN, SHE IS WORKING ON TRANSFER TO [facility] FOR TOMORROW, CM OR SPARK TESTER WILL HAVE TO FOLLOW UP WITH [facility] IN AM FOR BED ASSIGNMENT. ORAL WILL WORK ON AUTH FOR [facility], CM WILL PLACE [facility] ON WILL CALL IF POSSIBLE. Addendum: 11/16/21 at 1747 by Kimi Limon CM DC PLANNING: THE PATIENT IS SCHEDULED FOR SUSANNE AT [facility] AT 0800, THE PATIENT NEEDS TO BE THERE NO LATER THAN 0730. MAYANK CONFIRMED THIS WITH THE SPARK TESTER [facility]UL[facility], HE IS UNSURE WHO WILL DO THE PROCEDURE. KAY WITH ISSUE AUTH # FOR THE PROCEDURE AFTER THEY GET THE PROCEDURE CODES AND WILL FOLLOW UP WITH MAYANK MILLAN IN THE AM FOR THIS. TRANSPORTATION NOT ARRANGED [facility] IS OUT OF NETWORK, KELVINMO'S COORDINATOR WILL CALL THEIR CONTACTED VENDORS FIRST AND WILL THEN ARRANGE A LENDING CONSULTANT TIME OF 0700 WITH [facility]. THE AFTER HOURS COORDINATOR IS GABRIELLA, PHONE NUMBER [phone] EXT [phone], SHE IS WORKING UNTIL 8 PM. THE AFTER HOURS REGAL CM IS FORTINO, PHONE NUMBER [phone], SHE IS WORKING UNTIL 11:00 PM. MAYANK WILL FOLLOW. Addendum: 11/16/21 at 1810 by Kimi Limon CM DC PLANNING: MAYANK RECEIVED A CALL FROM DR GARCIA STATING THAT THE PATIENT HAS NOT BEEN SCHEDULED BY HIM FOR A SUSANNE AND HE IS THE ONE WHO SETS THIS UP. HE THEN CALLED BACK AND STATED THAT IT CAN BE DONE SATURDAY AFTERNOON BUT HE IS NOT SURE OF THE TIME OR IF IT WILL BE DR CHRISTOPH HARRISON OR ROBERT MARSHALL. HE WILL CONFIRM THE TIME AND MD TOMORROW WITH MAYANK MILLAN. MAYANK SPOKE WITH FORTINO AT [facility] TO ENDORSE THE NEW PLAN, ALSO ASKED HER TO STOP ARRANGEMENTS FOR TRANSPORT IN AM. MAYANK ALSO SPOKE WITH THE PATIENT FLORENCIA TO LET HER KNOW ABOUT THE CHANGE IN DAY AND TIME FOR THE SUSANNE. MAYANK WILL FOLLOW. Addendum: 11/17/21 at 1123 by Terri Guthrie RN DC PLANNING: RECEIVED A CALL FROM JOSE TALLEY AT [facility] STATED [facility] IS ACCEPTING PATIENT AND THE PROCEDURE CAN BE DONE AT 2 PM. HOWEVER WHEN SHE SPOKE WITH THE PATIENT PT REFUSED TO GO TO [facility] ,[facility] CALLED [facility] SPOKE WITH THE TRANSFER CENTER, STATED PATIENT HAS THE BENEFITS WITH THE [employer]-PAY, FAXED ALL THE REQUEST TO [phone]. MAYANK TO FOLLOW Addendum: 11/17/21 at 1233 by Terri Guthrie RN DC PLANNING: RECEIVED A CALL FROM [facility] SPOKE WITH CAMI DELEON PATIENT GO ACCEPTED AT [facility] [address] CARROLL ROOM NUMBER 4 [place] BED 12 # TO GIVE REPORT [phone] EXT [phone]. LENDING CONSULTANT TIME 1:30 PM NOTIFIED PATIENT, DR RICHARDSON, DR GARCIA AND HAMLET OROZCO. CM TO FOLLOW
--- NOTE | 2021-11-13 13:55 | NUR ---
SPOKE WITH DR RASHID VIA TELEPHONE. ORDERED TO CONTINUE DAILY CPAP TRIALS. ORDERED PRECEDEX DRIP AND TO WEAN OFF VERSED AND FENTANYL.
[2021-11-13] MEDS: DEXMEDETOMIDINE HCL 400 MCG in NACL 0.9% 96 ML IV PRN (14:40)
--- NOTE | 2021-11-13 15:15 | NUR ---
SPOKE WITH DR. RICHARDSON VIA TELEPHONE. RECEIVED ORDERS FOR PROTONIX 40MG IV Q12.
[2021-11-13] MEDS: DEXT 5% /NACL 0.9% 1,000 ML IV SCH (15:30)
--- NOTE | 2021-11-13 15:57 | NUR ---
DISCHARGE PLAN PATIENT IS A 61 YEAR OLD MALE ADMITTED ON 11/10/2021 ON [facility]/ED DUE TO SHORTNESS OF BREATH. PATIENT HAS MEDICAL HISTORY OF OBESITY, TYPE 2 DIABETES, LIVER CIRRHOSIS, MELANOMA STATUS POSTRESECTION, AND HYPERTENSION. SW ATTEMPTED TO MET WITH PATIENT AT BEDSIDE TO DISCUSS AND GATHER HIS COLLATERAL INFORMATION. PATIENT WAS NOT ALERT AND UNABLE TO PROVIDE HIS OWN INFORMATION. SW CALL HIS FLORENCIA GALAN VIA TELEPHONIC CALL AT TO DISCUSS AND GATHER HIS INFORMATION. PER PATIENT'S FLORENCIA GALAN PATIENT LIVES AT HOME WITH HER AND HIS 2 ADULT SON'S. PATIENT HAS GOOD SUPPORT FROM HIS FAMILY. PATIENT HAS NO A.D. AND NO INTEREST ON INFORMATION FORMS PROVIDED BY IRENE. PATIENT HAS NO ISSUES GETTING HIS MEDICATIONS AND IS CONSISTENT TAKING THEM DAILY. PATIENT GETS THEM FROM [facility] IN [place] AND ALSO GETS SOME OF THE MEDICATION SEND VIA MAIL DELIVERED HOME FROM A [facility]. PATIENT'S REPORTED THAT PATIENT HAS ONLY A WALKER HID ONLY DME.PER PATIENT'S HE HAS A PCP DR. SHAUNNA STORY THAT HE LAST VISIT AT ABOUT A MONTH AGO AND WITH HE WILL FOLLOW UP WITH AN APPOINMENT AFTER HE IS DC FROM [facility] WITHIN 5-7 DAYS AFTER HIS DISCHARGE. PER PATIENT'S SHE WILL BE MAKING HIS APPOINTMENT AND DECLINED FOR SW TO MAKE IT FOR THEM. PATIENT'S REPORTED THAT SHE OR ONE OF THEIR SON'S WILL BE PICKING PATIENT UP AND TAKING HIM BACK HOME WHEN HE IS READY FOR DISCHARGE. SW THANKED HER FOR THE INFORMATION AND WILL FOLLOW UP NEEDED.
--- NOTE | 2021-11-13 16:30 | NUR ---
FAMILY AT BEDSIDE.
--- NOTE | 2021-11-13 17:40 | NUR ---
SEEN AND EXAMINED BY DR. RASHID. ORDERS RECEIVED.
--- NOTE | 2021-11-13 18:05 | NUR ---
ORAL AND PEDROZA CARE. CLEANED AND REPOSITIONED. PT RESTING COMFORTABLY IN BED. RASS -3.
--- NOTE | 2021-11-13 19:15 | NUR ---
ENDORSED REPORT TO HARESH HOLT RN.
[2021-11-13] MEDS ORDERED: DEXMEDETOMIDINE HCL 100 MCG/ML 2 ML VIAL IV ONE (19:26)
--- NOTE | 2021-11-13 20:00 | NUR ---
RECEIVED REPORT FROM OFF GOING RN. PT IS ASLEEP BUT EASIL;Y AROUSABLE. RASS 0 -1.
[2021-11-13] MEDS: LORazepam 2 MG/ML VIAL IVP PRN ×2 (21:19→21:20)
[2021-11-13] MEDS: PANTOPRAZOLE 40 MG INJ VIAL IVP SCH (21:19)
--- NOTE | 2021-11-13 21:59 | NUR ---
CALL PLACED TO THE [facility]. DR PATEL IS ELECTRICAL MANAGER AND HE CALLED BACK RIGHT AWAY. HE GAVE AN ORDER TO USE CATHFLO TO UNCLOG THE PICK LINE. CALLED NUMERICAL CONTROL MACHINE MACHINIST TO OBTAIN MEDICATION.
[2021-11-13] MEDS ORDERED: ALTEPLASE 2 MG VIAL MC SCH (22:00)
[2021-11-14] VITALS (25 sets, daily range): BP systolic 11–159; BP diastolic 51–98
--- NOTE | 2021-11-14 01:04 | NUR ---
PT HAD A VERY LARGE FOUL SMELLING LIQUID STOOL; ESTIMATED 1000CC,COMPLETE BATH AND LINEN CHANGE.
--- NOTE | 2021-11-14 03:44 | NUR ---
PT'S AT THE BEDSIDE.
[2021-11-14] MEDS: MORPHINE SULFATE 4 MG/ML SYR IVP PRN (03:51)
--- NOTE | 2021-11-14 03:56 | NUR ---
PT COMPLAINING OF PAIN 02/10. MORPHINE 4MG AND ZOFRAN GIVEN.
[2021-11-14] MEDS ORDERED: DEXMEDETOMIDINE HCL 100 MCG/ML 2 ML VIAL IV ONE (04:51)
[2021-11-14] MEDS: DEXMEDETOMIDINE HCL 400 MCG in NACL 0.9% 96 ML IV PRN (05:15)
[2021-11-14] MEDS: BLOOD GLUCOSE MONITORING 1 DEV DEV FS SCH ×4 (06:00→18:46)
--- NOTE | 2021-11-14 06:00 | NUR ---
LAB CALLED TO REPORT CRITICAL POTASSIUM LEVEL 2.9. 40MEQ POTASSIUM GIVEN. ENDORESED TO DAY SHIFT RN. SHE TEXT TO SEE IF HE WANTED TO TREAT THE POTASSSIUM MORE AGRESSIVELY.
[2021-11-14 06:44] LABS: BASOPHILS % (AUTO) 0.7 % (0.0-2.0); EOSINOPHILS # (AUTO) 0.2 K/uL (0-0.4); EOSINOPHILS % (AUTO) 3.5 % (0.0-4.0); HEMATOCRIT 44.8 % (36-52); HEMOGLOBIN 15.1 g/dL (12.0-18.0); LYMPHOCYTES # (AUTO) 0.7 K/uL (2.0-11.5); LYMPHOCYTES % (AUTO) 13.6 % (20.5-51.1); MEAN CORPUSCULAR HEMOGLOBIN 29 pg (27-31); MEAN CORPUSCULAR HGB CONC 34 g/dL (33-37); MEAN CORPUSCULAR VOLUME 86.9 fL (80-94); MONOCYTES # (AUTO) 0.5 K/uL (0.8-1.0); MONOCYTES % (AUTO) 9.5 % (1.7-9.3); NEUTROPHILS # (AUTO) 3.5 K/uL (1.8-7.7); NEUTROPHILS % (AUTO) 72.7 % (42.2-75.2); PLATELET COUNT (AUTO) 64 K/uL (140-450); RED BLOOD CELL COUNT(AUTO) 5.15 MIL/uL (4.20-6.10); RED CELL DISTRIBUTION WIDTH 14.9 % (11.6-13.7); WHITE BLOOD COUNT (AUTO) 4.8 K/uL (4.8-10.8)
[2021-11-14 07:08] LABS: ALBUMIN 2.7 g/dL (3.4-5.0); ANION GAP 7.3 (8-16); CREATININE 0.8 mg/dL (0.6-1.3); MAGNESIUM 1.9 mg/dL (1.8-2.4); POTASSIUM 4.3 mmol/L (3.5-5.1); TOTAL BILIRUBIN 0.7 mg/dL (0.0-1.0)
--- NOTE | 2021-11-14 07:30 | NUR ---
RECEIVE REPORT FROM BG OROZCO, HE IS AFEBILE ,ET TO VENT SETTING AC/PRVC 35% VT 520 PEER 5 O2 SAT 96% SKIN DRY AND WARM TO TOUCH, NG TUBE FEEDING IN PROGRESS ABDOMINAL FIRM BS ACTIVE. RT LEG EDEMATES , F/C DRAIN CLEAR ERIC URINE.PICC LINE NOT FUCNTION WELL AT THIS TIME.
--- NOTE | 2021-11-14 07:41 | NUR ---
CATHFLO WAS NOT SUCCESSFUL IN UNCLOGING THE THE PICC LINE LUMEN. TWO NURSES TRIED UNSUCCESSFUL IN STARTING A PERIPHERAL LINE. PT ONLY GOT 240 CC OF HIS D5, NS DR. HILL MADE AWARE. Addendum: 11/14/21 at 0756 by Agency 11 RN RN CORRECTION ON THE DOCTOR , IT IS DR. VALIENTE AND DR. RASHID IS AGRICULTURE SCIENCE TEACHER. PT URINE OUTPUT IS EXCESSIVE AT 1900CC URINE OUT AND 1000CC LIQUID STOOL,HIS INTAKE WAS 1000CC. DR. RASHID INFORMED.
--- NOTE | 2021-11-14 08:05 | NUR ---
RECEIVED ON A PerBlueSCAPE R860 VENTILATOR PLUGGED INTO RED OUTLET TOLERATING WELL WITHOUT ADVERSE REACTIONS NOTED TO ENDOTRACHEAL TUBE #8.O SECURED AT 23cm TEETH/GUM LINE WITH ANCHOR FAST CUFF PRESSURE CHECKED NOTED AMBU BAG AT BEDSIDE LOC AWAKE AND ALERT INTERMITTENTLY "MOUTHING WORDS" EQUAL CHEST RISE ENDOTRACHEAL SUCTION FOR MODERATE SEMI THICK YELLOW WITH BLOOD TINGE SECRETIONS AIRWAY PATENT
--- NOTE | 2021-11-14 08:12 | NUR ---
LOC AWAKE AND ALERT EQUAL CHEST RISE WITH GOOD AERATION THROUGHOUT BILATERAL LUNG PFEIFFER AIRWAY PATENT PLACED ON CPAP TRIAL NOTED WHILE KEEPING SpVt GREATER THAN 400ml (6ml/kg) HOT MILL OBSERVER TO MONITOR
--- NOTE | 2021-11-14 08:30 | NUR ---
seen by dr clayton at bed site, order received.
--- NOTE | 2021-11-14 08:33 | NUR ---
ABG DONE NO ADVERSE REACTIONS NOTED CPAP TRIAL PEEP 5cmH2O PS [id number]
--- NOTE | 2021-11-14 08:50 | NUR ---
CALLED DR. DEVI RASHID AT [facility] [phone] TO REVIEW ABG SAMPLE REPORT ABHISHEK/EXCHANGE TO PAGE FOREMENTIONED
--- NOTE | 2021-11-14 08:58 | NUR ---
TOLERATING CPAP TRIAL WELL WITHOUT COMPLICATIONS NOTED EQUAL CHEST RISE GOOD AERATION THROUGHOUT BILATERAL LUNG PFEIFFER AIRWAY PATIENT LOC AWAKE AND ALERT FEELING ANXIOUS/IRRITABLE POINTING TOWARDS ENDOTRACHEAL TUBE PRODUCTION TEAM MANAGER ASKING PATIENT "YOU WANT THE TUBE - NODDING HEAD YES" INFORMED PATIENT THAT I NEED TO REVIEW THE ABG RESULTS WITH PULMONOLOGY PRIOR TO EXTUBATION TO PREVENT REINTUBATION; PATIENT ACKNOWLEDGED Addendum: 11/14/21 at 1108 by Eligio Sen RT SUCTIONED FOR MODERATE SEMI THICK YELLOW SECRETIONS AIRWAY PATENT
[2021-11-14] MEDS: PANTOPRAZOLE 40 MG INJ VIAL IVP SCH ×2 (09:00→21:30)
--- NOTE | 2021-11-14 09:00 | NUR ---
CALL BACK FROM DR. DEVI RASHID REVIEWED ABG SAMPLE REPORT TORBO: EXTUBATE PATIENT; KEEP SATURATION GREATER THAN 92%; HHN THERAPY DUONEB Q4 PRN FOR SOB/WHEEZE
[2021-11-14] MEDS ORDERED: ALBUTEROL SULFATE/IPRATROPIU 3 ML SOL IH PRN (09:05)
--- NOTE | 2021-11-14 09:15 | NUR ---
LOC AWAKE AND ALERT EDUCATION PROVIDED TO PATIENT ON EXTUBATION PROCEDURE WITH PATIENT ACKNOWLEDGEMENT TWO MINUTE 100% FIO2 INITIATED ENDOTRACHEAL SUCTION FOR SMALL THIN YELLOW SECRETIONS AIRWAY PATENT OROPHARYNGEAL SUCTION FOR MODERATE THIN CLEAR SECRETIONS REMOVED ANCHOR HEAD/NECK STRAP DEFLATED CUFF BOOKSTORE MANAGER BALLOON FLAT MUSHROOM FARMER VERBAL COMMAND TO PATIENT FOR DEEP BREATH WHILE CONSECUTIVELY REMOVING ENDOTRACHEAL TUBE AND OG TUBE (CASTRO/PACKING ATTENDANT ACKNOWLEDGED) PLACED ON HUMIDIFIED SUPPLEMENTAL OXYGEN AT 3 LPM VIA NC TOLERATED PROCEDURE WELL WITHOUT ADVERSE REACTIONS NOTED CASTRO/PACKING ATTENDANT NOTIFIED OF EXTUBATION AND SUPPLEMENTAL OXYGEN
--- NOTE | 2021-11-14 10:00 | NUR ---
awake alert FOLLW COMMAND ASKING FOR FOOD. SMALL ICE CHIP GIVEN.
--- NOTE | 2021-11-14 12:30 | NUR ---
CLEAR LIQUID LUNCH TAKE. WELL
--- NOTE | 2021-11-14 12:58 | NUR ---
11/14/21 RD FOLLOW UP COMPLETED PLEASE REFER TO NUTRITION ASSESSMENT UNDER CARE ACTIVITY FOR ESTIMATED NUTRITIONAL NEEDS. 1. CONTINUE CLEAR LIQUID DIET TOLERATED 2. WHEN/IF MEDICALLY APPROPRIATE, RECOMMEND [facility] SOFT -RECOMMEND ORAL SUPPLEMENTS IF PO INTAKE IS < 75% 3. MONITOR NUTRITION-RELATED LAB VALUES 4. RD TO FOLLOW-UP IN 2-3 DAYS; HIGH RISK. IESHA TELLO RD
[2021-11-14] MEDS: ACETAMINOPHEN 325 MG TAB PO PRN (13:18)
--- NOTE | 2021-11-14 14:00 | NUR ---
AWAKE ALERT FOLLOW COMMAND SON AT BEDSIDE PT CALM AND COOPERATIVE.
[2021-11-14] MEDS: cefTRIAXone 2,000 MG in DEXTROSE 5% 100 ML IV SCH (16:00)
--- NOTE | 2021-11-14 18:00 | NUR ---
AWAKE AND ALERT FEED HIMSELF WITH LIQUID DIET.
--- NOTE | 2021-11-14 19:15 | NUR ---
RECEIVED REPORT FROM DAY SHIFT RN (CASTRO): PATIENT WAS EXTUBATED AT 0915. PICC LINE DC, DC PRECEDEX. HAD PEDROZA OUTPUT OF 1300CC. PATIENT WITH RIGHT LEG SWELLING AND WARMTH SECONDARY TO LYMPH NODE REMOVAL (HISTORY OF MELANOMA). LEFT LEG STASIS. PATIENT WITH INFILTRATED LEFT FOREARM PERIPHERAL IV; DC'D AT BEDSIDE.
--- NOTE | 2021-11-14 19:19 | NUR ---
GIVE REPORT TO [place] FOR CONTINUE CARE.
--- NOTE | 2021-11-14 19:30 | NUR ---
RECEIVED PATIENT AWAKE, ALERT, AND ORIENTED; CURRENTLY ON SUPPLEMENTAL O2 (2L VIA NASAL CANNULA). PATIENT WITH INTERMITTENT COUGHING. INSERTION OF PERIPHERAL IV (22G, LEFT WRIST). PATIENT ON CLEAR LIQUID DIET. BOWEL SOUNDS PRESENT IN ALL 4 QUADRANTS. PATIENT WITH PEDROZA CATHETER, DRAINING ADEQUATE AMOUNT. MNURMS2
[2021-11-14] MEDS: LORazepam 2 MG/ML VIAL IVP PRN (20:03)
--- NOTE | 2021-11-14 20:39 | NUR ---
PATIENT WITH NEW PEDROZA OUTPUT OF 550CC ADMINISTERED 2MG ATIVAN VIA IVP AT 2002, AT BEDSIDE. PATIENT DOES NOT APPEAR TO BE IN ACUTE DISTRESS. WILL CONTINUE TO MONITOR. MNURMS2
[2021-11-15] VITALS (18 sets, daily range): BP systolic 112–153; BP diastolic 59–104
[2021-11-15] MEDS: MORPHINE SULFATE 4 MG/ML SYR IVP PRN ×3 (00:22→12:41)
[2021-11-15] MEDS: BLOOD GLUCOSE MONITORING 1 DEV DEV FS SCH ×5 (00:35→23:51)
--- NOTE | 2021-11-15 00:37 | NUR ---
PATIENT WITH COMPLAINTS OF PAIN, ADMINISTERED MORPHINE 4MG VIA IVP GLUCOSE CHECK = 119 WILL CONTINUE TO MONITOR PATIENT. MNURMS2
[2021-11-15] MEDS: ACETAMINOPHEN 325 MG TAB PO PRN ×4 (03:14→22:36)
[2021-11-15] MEDS ORDERED: Z-GUARD PASTE TP ONE (04:23)
--- NOTE | 2021-11-15 05:15 | NUR ---
pt awake watching tv, morning care offered, pt refused, he wants care to be done after breakfast
[2021-11-15 05:26] LABS: BASOPHILS % (AUTO) 0.7 % (0.0-2.0); EOSINOPHILS # (AUTO) 0.1 K/uL (0-0.4); EOSINOPHILS % (AUTO) 2.5 % (0.0-4.0); HEMATOCRIT 42.3 % (36-52); HEMOGLOBIN 14.1 g/dL (12.0-18.0); LYMPHOCYTES # (AUTO) 0.7 K/uL (2.0-11.5); LYMPHOCYTES % (AUTO) 13.2 % (20.5-51.1); MEAN CORPUSCULAR HEMOGLOBIN 29 pg (27-31); MEAN CORPUSCULAR HGB CONC 33 g/dL (33-37); MEAN CORPUSCULAR VOLUME 87.1 fL (80-94); MONOCYTES # (AUTO) 0.7 K/uL (0.8-1.0); MONOCYTES % (AUTO) 12.7 % (1.7-9.3); NEUTROPHILS % (AUTO) 70.9 % (42.2-75.2); PLATELET COUNT (AUTO) 80 K/uL (140-450); RED BLOOD CELL COUNT(AUTO) 4.85 MIL/uL (4.20-6.10); RED CELL DISTRIBUTION WIDTH 14.9 % (11.6-13.7); WHITE BLOOD COUNT (AUTO) 5.7 K/uL (4.8-10.8)
[2021-11-15 05:32] LABS: ALBUMIN 2.9 g/dL (3.4-5.0); ANION GAP 7.7 (8-16); CARBON DIOXIDE 31.3 mmol/L (21-32); CREATININE 0.7 mg/dL (0.6-1.3); MAGNESIUM 1.8 mg/dL (1.8-2.4); TOTAL BILIRUBIN 0.8 mg/dL (0.0-1.0)
--- NOTE | 2021-11-15 06:35 | NUR ---
PATIENT HAS COMPLAINTS OF GENERALIZED PAIN, ADMINISTERED MORPHINE 4MG PER MD ORDERS. MNURMS2.
--- NOTE | 2021-11-15 07:10 | NUR ---
SBAR report received from Jazmine OROZCO, all cares assumed. Pt is awake and talking with nursing staff. Pt on room air, castellanos catheter draining to gravity. Bed in low and locked position, call light within reach.
--- NOTE | 2021-11-15 07:14 | NUR ---
ENDORSED PATIENT TO DAY SHIFT RN (ANGELINE) FOR CONTINUITY OF CARE.
[2021-11-15] MEDS: PANTOPRAZOLE 40 MG INJ VIAL IVP SCH ×2 (08:18→20:31)
--- NOTE | 2021-11-15 11:00 | NUR ---
of pt at bedside. Discussed with pt self cares for the day. Pt would like to help him with bed bath. Bathing supplies given to pt. of pt assisting in ADL's.
--- NOTE | 2021-11-15 12:33 | NUR ---
DR. PEREZ AT BEDSIDE IN ICU 2.
[2021-11-15] MEDS: Z-GUARD PASTE TP SCH (12:56)
[2021-11-15] MEDS: cefTRIAXone 2,000 MG in DEXTROSE 5% 100 ML IV SCH (16:04)
--- NOTE | 2021-11-15 17:20 | NUR ---
TITRATED TO ROOM AIR SPO2 97% TOLERATING WELL
[2021-11-15] MEDS: traMADol 50 MG TAB PO PRN (18:11)
[2021-11-15] MEDS: FUROSEMIDE 40 MG/4 ML VIAL IVP SCH (18:28)
--- NOTE | 2021-11-15 19:30 | NUR ---
REPORT GIVEN TO NOÉ OROZCO FOR CONTINUITY OF CARE. PT TRANSFERRED TO 107B IN STABLE CONDITION VIA WHEELCHAIR, PT SON YI WALKED WITH US .A/O X4.ON ROOM AIR.NO SOB NOTED.MONITOR ATTACHED.PERIPHERAL IV INTACT G 22.SALINE LOCK.PT ABLE TO STAND AND WALKED FEW STEPS.PT VOIDED BEFORE TRANSFER 300ML YELLOW URINE.SKIN REMAINS INTACT.DENIES PAIN AT THIS TIME.
--- NOTE | 2021-11-15 19:35 | NUR ---
RECEIVED PT REPORT FROM ICU NURSE YA FOR CONTINUITY OF CARE. PT WAS TRANSFERRED FROM ICU, PT ARRIVED VIA WHEELCHAIR ACCOMPANIED BY SON. PATIENT ALERT, AWAKE AND ORIENTED. ON ROOM AIR, O2 SAT AT 98%. BLE SWELLING NOTED.SKIN WARM, DRY AND INTACT. IV ON L WRIST G 22, SALINE LOCKED. ALL PRECAUTIONS IN PLACE. CALL LIGHT WITHIN REACH.WILL CONTINUE TO MONITOR.
--- NOTE | 2021-11-15 21:00 | NUR ---
SCHEDULED MEDICATIONS GIVEN. PT TOLERATED WELL. WILL CONTINUE TO MONITOR.
[2021-11-15] MEDS: LORazepam 2 MG/ML VIAL IVP PRN (22:30)
--- NOTE | 2021-11-15 22:35 | NUR ---
PT REPORT OF HAVING ANXIETY. PRN ATIVAN GIVEN. WILL CONTINUE MONITOR.
[2021-11-16] VITALS: BP 121/81
[2021-11-16] MEDS: Z-GUARD PASTE TP SCH ×2 (01:04→13:00)
[2021-11-16] MEDS: LORazepam 2 MG/ML VIAL IVP PRN ×2 (01:56→05:56)
[2021-11-16] MEDS: traMADol 50 MG TAB PO PRN (01:56)
--- NOTE | 2021-11-16 02:00 | NUR ---
PT REPORT OF HAVING ANXIETY. PRN ATIVAN GIVEN. WILL CONTINUE MONITOR.
[2021-11-16 04:00] VITALS: BP 144/81
[2021-11-16] MEDS: BLOOD GLUCOSE MONITORING 1 DEV DEV FS SCH ×4 (05:57→23:35)
--- NOTE | 2021-11-16 07:09 | NUR ---
ENDORSED PATIENT TO MORNING SHIFT NURSE FOR CONTINUITY OF CARE.
--- NOTE | 2021-11-16 07:10 | NUR ---
RECEIVED PT REPORT FROM NIGHT RN. PT ALERT ASLEEP & BREATHING EFFORTLESSLY ON ROOM AIR WITH CHEST RISING & FALLING NORMALLY. SALINE LOCK AT L WRIST, G 22. ALL PRECAUTIONS IN PLACE. CALL LIGHT WITHIN REACH. WILL CONTINUE TO MONITOR. Addendum: 11/16/21 at 0756 by Kimberly Pacheco RN PATIENT WAS RECEIVED ASLEEP.
[2021-11-16 08:00] VITALS: BP 109/88
--- NOTE | 2021-11-16 09:04 | NUR ---
PT STATED HE'S TAKING BUPRENORPHINE 2MG AT HOME, PT SEEN BY DR RASHID WITH ORDER FOR BUPRENORPHINE 2MG DAILY.
[2021-11-16] MEDS ORDERED: HYDROcodone/APAP 5/325 MG 1 TAB TAB PO PRN (09:10)
--- NOTE | 2021-11-16 09:20 | NUR ---
PT C/O PAIN ON IV LINE WHEN FLUSHING, CHANGED IV SITE TO RIGHT HAND 22G, NO S/SX OF INFILTRATION NOTED.
[2021-11-16] MEDS: FUROSEMIDE 40 MG/4 ML VIAL IVP SCH ×2 (09:32→16:50)
[2021-11-16] MEDS: PANTOPRAZOLE 40 MG INJ VIAL IVP SCH ×2 (09:33→20:38)
--- NOTE | 2021-11-16 09:35 | NUR ---
AM MEDS GIVEN ORDERED. PATIENT REPORTED PAIN OF 12/10 BUT REFUSED THE ORDERED TRAMADOL, STATING IT DOES NOT HELP BUT THAT HE HAS TAKEN BUPRENORPHINE FOR YEARS AND IT HELPS THE PAIN. WILL REPORT TO . Addendum: 11/16/21 at 1042 by Kimberly Pacheco RN PATIENT REPORTS DECREASE IN PAIN FROM 710 TO 510. BUPRENORPHINE NOW ORDERED AND BROUGHT FROM HOME BY PATIENTS . PER PHARMACY, WILL SUPPLY THE MED AND PATIENT'S SUPPLY FROM HOME CAN BE RETURNED TO --SAME DONE. WILL ADMIN MED SOON AVAILABLE FROM PHARMACY. Addendum: 11/16/21 at 1055 by Kimberly Pacheco RN PATIENT REPORTS NO CHANGE IN PAIN. BUPRENORPHINE RECEIVED FROM PHARMACY AND GIVEN ORDERED. WILL CONTINUE TO MONITOR PATIENT FOR PAIN.
[2021-11-16] MEDS: buprenorphine HCL 2 MG sublingual tab SL SCH (10:48)
--- NOTE | 2021-11-16 11:50 | NUR ---
PATIENT UP & AMBULATING IN ROOM TO BATHROOM. REPORTS "COMPLETE" PAIN RELIEF SINCE TAKING BUPRENORPHINE. WILL CONTINUE TO MONITOR.
[2021-11-16 12:00] VITALS: BP 119/81
--- NOTE | 2021-11-16 14:41 | NUR ---
11/16/21 RD FOLLOW UP COMPLETED PLEASE REFER TO NUTRITION ASSESSMENT UNDER CARE ACTIVITY FOR ESTIMATED NUTRITIONAL NEEDS. 1. [facility] DIET TOLERATED 2. MONITOR NUTRITION-RELATED LAB VALUES 3. RD TO FOLLOW-UP IN 7 DAYS; LOW RISK. IESHA TELLO RD
[2021-11-16] MEDS: cefTRIAXone 2,000 MG in DEXTROSE 5% 100 ML IV SCH (15:14)
[2021-11-16 16:00] VITALS: BP 114/72
--- NOTE | 2021-11-16 16:30 | NUR ---
NOTED PT'S IV LINE OUT. RE-INSERTED ANOTHER LINE ON LEFT HAND 22G, NO S/SX ON INFILTRATION NOTED.
--- NOTE | 2021-11-16 16:35 | NUR ---
RECEIVED CALL FROM SULMA, NURSING BODY COMPONENT ENGINEER AT [facility], ASKING FOR FACESHEET AND H&P TO BE FAXED TO THEM AT [phone], ALSO STATED PT NEEDS TO BE THERE BEFORE 0730 TOMORROW. CM MADE AWARE.
--- NOTE | 2021-11-16 16:48 | NUR ---
SPOKE WITH CM, AWAITING FOR AUTHORIZATION FROM PT'S INSURANCE
--- NOTE | 2021-11-16 16:55 | NUR ---
SPOKE WITH DR RICHARDSON, MADE AWARE THAT WE'RE WAITING FOR PT'S INSURANCE TO AUTHORIZE [facility] AT [place], IF NOT, MIGHT SEND PT TO ANOTHER HOSPITAL FOR THE [facility].
--- NOTE | 2021-11-16 18:00 | NUR ---
SPOKE WITH CM, PER CM DR GARCIA STATED THE PT IS NOT SCHEDULED FOR [facility] BY HIM DR GARCIA IS THE ONE WHO SETS IT UP. POSSIBLE [facility] ON SATURDAY EITHER BY DR HARRISON OR DR MARSHALL BUT UNSURE OF THE TIME YET. CM WILL FOLLOW UP TOMORROW.
--- NOTE | 2021-11-16 18:03 | NUR ---
HUMALOG INSULIN 2 UNITS ADMIN SUBQ AT R UPPER ARM FOR BLOOD GLUCOSE OF 155 PER SLIDING SCALE ORDER.
--- NOTE | 2021-11-16 19:10 | NUR ---
RECEIVED BEDSIDE REPORT FROM DAY SHIFT. PATIENT IS AWAKE, ALERT, AND COOPERATIVE. RESPIRATION EVEN UNLABORED ON ROOM AIR. NO DISTRESS NOTED. SKIN IS WARM AND DRY. IV PATENT AND INTACT. PLAN OF CARE DISCUSSED. ALL SAFETY MEASURES IN PLACE. BED IS AT LOW POSITION, CALL LIGHT WITHIN REACH. WILL CONTINUE TO MONITOR.
--- NOTE | 2021-11-16 19:13 | NUR ---
ROUNDED ON PATIENT: PATIENT IS STABLE AND BREATHING EFFORTLESSLY ON ROOM AIR WITH CHEST RISING & FALLING--BREATHS EVEN & UNLABORED. PATIENT VERBALIZES COMFORT. ALL NEEDS HAVE BEEN MET THROUGHOUT SHIFT. PATIENT WILL NOW BE ENDORSED TO SHALE PLANER OPERATOR HELPER NURSES. ALL SAFETY MEASURES ARE IN PLACE AND CALL LIGHT IS WITHIN REACH.
--- NOTE | 2021-11-16 19:15 | NUR ---
ENDORSED PT TO DOORKEEPER NURSE FOR CONTINUITY OF CARE.
[2021-11-16 20:00] VITALS: BP 118/83
--- NOTE | 2021-11-16 20:10 | NUR ---
SON AT BEDSIDE.
--- NOTE | 2021-11-16 20:40 | NUR ---
ALL SCHEDULED MEDS WERE GIVEN PER ORDER. WILL CONTINUE TO MONITOR.
--- NOTE | 2021-11-16 22:45 | NUR ---
PATIENT COMPLAINED OF LEG PAIN 7/10 PRN PAIN MEDS GIVEN PER ORDER. WILL CONTINUE TO MONITOR
[2021-11-16] MEDS: MORPHINE SULFATE 2 MG/ML SYR IVP PRN (22:46)
[2021-11-17] VITALS: BP 128/82
--- NOTE | 2021-11-17 00:48 | NUR ---
MADE ROUNDS, PATIENT IS AWAKE, ON THE PHONE. NO DISTRESS NOTED
[2021-11-17] MEDS: Z-GUARD PASTE TP SCH ×2 (01:08→13:45)
--- NOTE | 2021-11-17 02:30 | NUR ---
MADE ROUNDS, PATIENT SLEEPING NO DISTRESS NOTED. WILL CONTINUE TO MONITOR
[2021-11-17 04:00] VITALS: BP 141/81
--- NOTE | 2021-11-17 04:10 | NUR ---
VITALS WERE TAKEN
[2021-11-17] MEDS: MORPHINE SULFATE 2 MG/ML SYR IVP PRN ×2 (05:26→13:52)
[2021-11-17] MEDS: BLOOD GLUCOSE MONITORING 1 DEV DEV FS SCH ×2 (05:57→12:24)
--- NOTE | 2021-11-17 07:00 | NUR ---
RECEIVED REPORT FROM SHAKE MAKER NURSE. PATIENT RECEIVED AMBULATING IN ROOM, ALERT & ORIENTED X 4 AND BREATHING EFFORTLESSLY ON ROOM. VERBALIZES COMFORT BUT STATED HE WILL NEED HIS BUPRENORPHINE TO PREVENT PAIN. IV ACCESS SALINE LOCKED AT L ARM, WITH SITE CLEAN & FREE OF SIGNS OF INFECTION--PATIENT DENIES PAIN OR DISCOMFORT AT SITE. TELEMETRY MONITORING IN PROGRESS WITH SR. PLAN OF CARE WILL BE CONTINUED AND SAFETY MAINTAINED.
--- NOTE | 2021-11-17 07:24 | NUR ---
ENDORSED PATIENT AT BEDSIDE TO DAY SHIFT NURSE FOR CONTINUITY OF CARE
[2021-11-17 08:00] VITALS: BP 137/91
[2021-11-17] MEDS: FUROSEMIDE 40 MG/4 ML VIAL IVP SCH (08:45)
[2021-11-17] MEDS: buprenorphine HCL 2 MG sublingual tab SL SCH (08:46)
[2021-11-17] MEDS: PANTOPRAZOLE 40 MG INJ VIAL IVP SCH (08:46)
[2021-11-17 12:00] VITALS: BP 126/91
--- NOTE | 2021-11-17 12:10 | NUR ---
SPOKE WITH CM, PT ACCEPTED TO [facility]. DR RICHARDSON MADE AWARE. PT AWARE.
[2021-11-17] MEDS ORDERED: ACET-9525 PO (12:44)
[2021-11-17] MEDS ORDERED: HUMSLIDE SUBQ (12:44)
[2021-11-17] MEDS ORDERED: LAS20I IVP (12:44)
[2021-11-17] MEDS ORDERED: ALBU3SOL83 IH (12:44)
[2021-11-17] MEDS ORDERED: ROC1PM IV (12:44)
--- NOTE | 2021-11-17 12:56 | NUR ---
PT FOR TRANSFER TO [facility], [phone] SPOKE WITH ERNESTO BOB AND GAVE REPORT. PT AWARE, PT'S AT BEDSIDE AND AWARE.
[2021-11-17 12:58] VITALS: BP 126/91
--- NOTE | 2021-11-17 14:20 | NUR ---
PT DISCHARGED TO [facility] PICKED UP BY [facility] VIA GURNEY WITH PAPERWORKS, BELONGINGS. IV LINE REMAINS ON LEFT HAND 22G, NO S/SX OF INFILTRATION NOTED. PT IN STABLE CONDITION.
== END 2021-11-17 14:40 | DRG 871 ==
LOC: MED 10:31 → MIC 14:45 → MTU 11-15 19:42
PROVIDERS: ADMIT Student in an Organized Health Care Education/Training Program; ATTEND Student in an Organized Health Care Education/Training Program
PROC: 5A1945Z Respiratory Ventilation, 24-96 Consecutive Hours (ICD-10-PCS; principal; 2021-11-10)
PROC: 0BH17EZ Insertion of Endotracheal Airway into Trachea, Via Natural or Artificial Opening (ICD-10-PCS; 2021-11-10)
DX: A41.9 Sepsis, unspecified organism (principal); J18.9 Pneumonia, unspecified organism; R65.21 Severe sepsis with septic shock; J96.01 Acute respiratory failure with hypoxia; J96.02 Acute respiratory failure with hypercapnia; L03.116 Cellulitis of left lower limb; L03.115 Cellulitis of right lower limb; Z68.42 Body mass index [BMI] 45.0-49.9, adult; E11.9 Type 2 diabetes mellitus without complications; C43.71 Malignant melanoma of right lower limb, including hip; K74.60 Unspecified cirrhosis of liver; K82.8 Other specified diseases of gallbladder; D69.6 Thrombocytopenia, unspecified; I27.20 Pulmonary hypertension, unspecified; G47.33 Obstructive sleep apnea (adult) (pediatric); E66.01 Morbid (severe) obesity due to excess calories; N20.0 Calculus of kidney; Z20.822 Contact with and (suspected) exposure to COVID-19; I11.0 Hypertensive heart disease with heart failure; I50.9 Heart failure, unspecified; K57.90 Diverticulosis of intestine, part unspecified, without perforation or abscess without bleeding; Z88.8 Allergy status to other drugs, medicaments and biological substances; Z79.899 Other long term (current) drug therapy; Z85.820 Personal history of malignant melanoma of skin; Z88.1 Allergy status to other antibiotic agents; Z95.2 Presence of prosthetic heart valve; Z79.82 Long term (current) use of aspirin
CPT/HCPCS: 31500; 36415; 36600; 71045; 71260; 76705; 80053; 80305; 81001; 82803; 82948; 83605; 83690; 83735; 83880; 84484; 85025; 87040; 87070; 87081; 87086; 87186; 87205; 89220; 93005; 93970; 94002; 94003; 94660; 96365; 96367; 96375; 96376; 99291; C9113; J0456; J0696; J1120; J1580; J1815; J1940; J2020; J2060; J2250; J2270; J2405; J2543; J2997; J3010; J3490; J7030; J7060; Q0092; Q9967

== ENCOUNTER 2022-01-19 21:06 | Emergency (ER) | payer OTHER, MEDICAID ==
[~2022-01-19] VITALS: Ht 182.9 cm; Wt 127.0 kg
[~2022-01-19 21:06] MED LIST changes: +ACET-9525 PO; +ALBU3SOL83 IH; -AMLO10TA88 PO; -ASPI-1271 PO; -BENA40TA PO; -CEPH500T PO; -CHOL100084 PO; +EMPA25TA PO; -FERR325E14 PO; +HUMSLIDE SUBQ; -HYDR25SU37 RC; +LAS20I IVP; -LOTC TP; +METO50TE2 PO; -OMEP-303 PO; +ROC1PM IV; -TAMS0.4C96 PO; -TUCKS TP; +VIT D3 PO; -[UNRECOGNIZED DRUG - CODE] NS; -[UNRECOGNIZED DRUG - CODE] TP
[2022-01-19 21:45] VITALS: BP 145/81
--- NOTE | 2022-01-19 21:46 | NUR ---
SEEN AND EXAMINED BY CLYDE
--- NOTE | 2022-01-19 21:48 | NUR ---
TO LOBBY A/W BED AMBULATORY
[2022-01-19] MEDS ORDERED: HYDROcodone/APAP 5/325 MG 1 TAB TAB PO ONE (21:55)
[2022-01-19 22:26] LABS: BASOPHILS % (AUTO) 0.8 % (0.0-2.0); EOSINOPHILS # (AUTO) 0.4 K/uL (0-0.4); EOSINOPHILS % (AUTO) 6.6 % (0.0-4.0); HEMOGLOBIN 14.8 g/dL (12.0-18.0); LYMPHOCYTES # (AUTO) 1.2 K/uL (2.0-11.5); LYMPHOCYTES % (AUTO) 21.4 % (20.5-51.1); MEAN CORPUSCULAR HEMOGLOBIN 29 pg (27-31); MEAN CORPUSCULAR HGB CONC 34 g/dL (33-37); MEAN CORPUSCULAR VOLUME 84.1 fL (80-94); MONOCYTES # (AUTO) 0.5 K/uL (0.8-1.0); MONOCYTES % (AUTO) 8.6 % (1.7-9.3); NEUTROPHILS # (AUTO) 3.6 K/uL (1.8-7.7); NEUTROPHILS % (AUTO) 62.6 % (42.2-75.2); PLATELET COUNT (AUTO) 79 K/uL (140-450); RED BLOOD CELL COUNT(AUTO) 5.12 MIL/uL (4.20-6.10); RED CELL DISTRIBUTION WIDTH 13.9 % (11.6-13.7); WHITE BLOOD COUNT (AUTO) 5.8 K/uL (4.8-10.8)
[2022-01-19 22:42] LABS: ALBUMIN 4.2 g/dL (3.4-5.0); ANION GAP 11.3 (8-16); CARBON DIOXIDE 27.7 mmol/L (21-32); CREATININE 0.8 mg/dL (0.6-1.3); TOTAL BILIRUBIN 0.9 mg/dL (0.0-1.0)
[2022-01-19] MEDS ORDERED: ACET-8386 PO (22:52)
[2022-01-19 23:05] VITALS: BP 119/79
--- NOTE | 2022-01-19 23:05 | NUR ---
Patient discharged with v/s stable. Written and verbal after care instructions given and explained. Patient alert, oriented and verbalized understanding of instructions. Ambulatory with steady gait. All questions addressed prior to discharge. ID band removed. Patient advised to follow up with PMD. Rx of NORCO 5/325 given. Patient educated on indication of medication including possible reaction and side effects. Opportunity to ask questions provided and answered.
== END 2022-01-19 23:05 | disposition home or self-care (01) ==
LOC: MED 21:06
DX: L03.114 Cellulitis of left upper limb (principal); E11.9 Type 2 diabetes mellitus without complications; I10 Essential (primary) hypertension; I25.10 Atherosclerotic heart disease of native coronary artery without angina pectoris; Z88.1 Allergy status to other antibiotic agents; Z85.820 Personal history of malignant melanoma of skin
CPT/HCPCS: 36415; 80053; 85025; 99283

== ENCOUNTER 2022-10-21 22:19 | Emergency (ER) | payer OTHER ==
[~2022-10-21] VITALS: Ht 180.3 cm; Wt 123.4 kg
[~2022-10-21 22:19] MED LIST changes: +ACET-8905 PO
[2022-10-21 23:06] VITALS: BP 125/80
[2022-10-21] MEDS ORDERED: FEXO1TAB16 PO (23:40)
[2022-10-21] MEDS ORDERED: HYDR-635 PO (23:40)
[2022-10-21 23:45] VITALS: BP 125/80
--- NOTE | 2022-10-21 23:45 | NUR ---
Patient discharged with v/s stable. Written and verbal after care instructions given and explained. Patient alert, oriented and verbalized understanding of instructions. Ambulatory with steady gait. All questions addressed prior to discharge. ID band removed. Patient advised to follow up with PMD. Rx of ISHMAEL-D, HYDROXYZINE given. Patient educated on indication of medication including possible reaction and side effects. Opportunity to ask questions provided and answered. DX: UPPER RESPIRATORY INFECTION, ADULT
== END 2022-10-21 23:45 | disposition home or self-care (01) ==
LOC: MED 22:19
DX: J30.9 Allergic rhinitis, unspecified (principal); G47.00 Insomnia, unspecified; E11.9 Type 2 diabetes mellitus without complications; I11.0 Hypertensive heart disease with heart failure; Z79.4 Long term (current) use of insulin; Z79.899 Other long term (current) drug therapy
CPT/HCPCS: 99283

== ENCOUNTER 2022-11-10 11:24 | Emergency (ER) | payer OTHER ==
[~2022-11-10] VITALS: Ht 180.3 cm; Wt 122.0 kg
[~2022-11-10 11:24] MED LIST changes: +FEXO1TAB16 PO; +HYDR-635 PO
[2022-11-10 11:29] VITALS: BP 139/80
--- NOTE | 2022-11-10 11:35 | NUR ---
BLOOD GLUCOSE 141
[2022-11-10] MEDS ORDERED: NACL 0.9% 1,000 ML IV ONE (11:45)
--- NOTE | 2022-11-10 12:07 | NUR ---
PT TAKEN TO CT VIA WHEELCHAIR
[2022-11-10 12:13] LABS: BASOPHILS % (AUTO) 0.5 % (0.0-2.0); EOSINOPHILS # (AUTO) 0.1 K/uL (0-0.4); HEMATOCRIT 40.7 % (36-52); HEMOGLOBIN 13.8 g/dL (12.0-18.0); LYMPHOCYTES # (AUTO) 0.6 K/uL (2.0-11.5); LYMPHOCYTES % (AUTO) 11.8 % (20.5-51.1); MEAN CORPUSCULAR HEMOGLOBIN 29 pg (27-31); MEAN CORPUSCULAR HGB CONC 34 g/dL (33-37); MONOCYTES # (AUTO) 0.3 K/uL (0.8-1.0); MONOCYTES % (AUTO) 6.8 % (1.7-9.3); NEUTROPHILS % (AUTO) 79.9 % (42.2-75.2); RED BLOOD CELL COUNT(AUTO) 4.84 MIL/uL (4.20-6.10); RED CELL DISTRIBUTION WIDTH 14.6 % (11.6-13.7)
[2022-11-10 12:24] LABS: PLATELET COUNT (AUTO) 63 K/uL (140-450)
[2022-11-10 12:25] LABS: ASPARTATE AMINOTRANSFERASE 42 U/L (15-37); CARBON DIOXIDE 27.9 mmol/L (21-32); CHLORIDE 103 mmol/L (98-107); CREATININE 0.8 mg/dL (0.6-1.3); GFR ARICAN-AMERICAN 126 mL/min (>90); GLUCOSE 132 mg/dL (74-106); POTASSIUM 3.9 mmol/L (3.5-5.1); SODIUM SERUM 139 mmol/L (136-145); TOTAL BILIRUBIN 0.9 mg/dL (0.0-1.0); UREA NITROGEN, BLOOD 16 mg/dL (7-18)
[2022-11-10] MEDS ORDERED: MECL-303 PO (12:34)
--- NOTE | 2022-11-10 12:45 | NUR ---
IV removed, catheter intact and site benign. Applied folded 4x4 gauze and tape to stop bleeding.
--- NOTE | 2022-11-10 12:48 | NUR ---
Patient discharged with v/s stable. Written and verbal after care instructions given and explained. Patient alert, oriented and verbalized understanding of instructions. Ambulatory with steady gait. All questions addressed prior to discharge. ID band removed. Patient advised to follow up with PMD. Rx of ANTIVERT given. Patient educated on indication of medication including possible reaction and side effects. Opportunity to ask questions provided and answered.
== END 2022-11-10 11:38 | disposition home or self-care (01) ==
LOC: MED 11:24
DX: S00.03XA Contusion of scalp, initial encounter (principal); R42 Dizziness and giddiness; R55 Syncope and collapse; E11.65 Type 2 diabetes mellitus with hyperglycemia; I10 Essential (primary) hypertension; W19.XXXA Unspecified fall, initial encounter; Y93.89 Activity, other specified; Y92.89 Other specified places as the place of occurrence of the external cause; Y99.8 Other external cause status
CPT/HCPCS: 36415; 70450; 80053; 82948; 84484; 85025; 93005; 99284; J7030

== ENCOUNTER 2023-01-09 14:53 | Inpatient (IN) | payer OTHER ==
[2023-01-09] VITALS (8 sets, daily range): BP systolic 112–117; BP diastolic 0–78; PULSE 46–89; RESP 12–22; TEMP 97.8–98.2; O2SAT 90–98
[~2023-01-09] VITALS: Ht 180.3 cm; Wt 114.8 kg
[~2023-01-09 14:53] MED LIST changes: +MECL-303 PO
[2023-01-09] MEDS ORDERED: AMIODARONE 150 MG in DEXTROSE 5% 100 ML IV ONE (15:05)
[2023-01-09] MEDS ORDERED: AMIODARONE 150 MG/3 ML VIAL IV ONE (15:13)
[2023-01-09] MEDS ORDERED: MAG SULF 2000 MG/WATER PREMIX 50 ML IV ONE (15:15)
[2023-01-09] MEDS ORDERED: AMIODARONE 450 MG in DEXTROSE 5% 250 ML IV ONE (15:15)
[2023-01-09] MEDS ORDERED: ASPIRIN 81 MG TAB.CHEW PO ONE (15:15)
[2023-01-09] MEDS ORDERED: AMIODARONE 450 MG in DEXTROSE 5% 250 ML IV SCH (16:00)
[2023-01-09 16:22] LABS: BASOPHILS # (AUTO) 0.1 K/uL (0.00-0.22); BASOPHILS % (AUTO) 1.1 % (0.0-2.0); EOSINOPHILS # (AUTO) 0.1 K/uL (0-0.4); EOSINOPHILS % (AUTO) 2.2 % (0.0-4.0); HEMATOCRIT 45.9 % (36-52); HEMOGLOBIN 15.2 g/dL (12.0-18.0); LYMPHOCYTES # (AUTO) 1.4 K/uL (2.0-11.5); LYMPHOCYTES % (AUTO) 29.2 % (20.5-51.1); MEAN CORPUSCULAR HEMOGLOBIN 28 pg (27-31); MEAN CORPUSCULAR HGB CONC 33 g/dL (33-37); MEAN CORPUSCULAR VOLUME 85.8 fL (80-94); MONOCYTES # (AUTO) 0.4 K/uL (0.8-1.0); MONOCYTES % (AUTO) 8.2 % (1.7-9.3); NEUTROPHILS # (AUTO) 2.9 K/uL (1.8-7.7); NEUTROPHILS % (AUTO) 59.3 % (42.2-75.2); PLATELET COUNT (AUTO) 72 K/uL (140-450); RED BLOOD CELL COUNT(AUTO) 5.35 MIL/uL (4.20-6.10); RED CELL DISTRIBUTION WIDTH 14.7 % (11.6-13.7); WHITE BLOOD COUNT (AUTO) 4.9 K/uL (4.8-10.8)
[2023-01-09 16:25] LABS: INR 1.11 (0.8-1.2); PARTIAL THROMBOPLASTIN TIME 27.7 secs (22-35.6); PROTHROMBIN TIME 11.5 secs (10.8-13.4)
[2023-01-09 16:27] LABS: ALANINE AMINOTRANSFERASE 73 U/L (12-78); ALBUMIN 4.1 g/dL (3.4-5.0); ALKALINE PHOSPHATASE 151 U/L (50-136); ANION GAP 15.6 (8-16); ASPARTATE AMINOTRANSFERASE 70 U/L (15-37); CALCIUM 8.8 mg/dL (8.5-10.1); CHLORIDE 105 mmol/L (98-107); CREATININE 0.9 mg/dL (0.6-1.3); GFR ARICAN-AMERICAN 110 mL/min (>90); GFR NON ARICAN-AMERICAN 91 mL/min (>90); GLUCOSE 159 mg/dL (74-106); POTASSIUM 3.6 mmol/L (3.5-5.1); SODIUM SERUM 142 mmol/L (136-145); TOTAL BILIRUBIN 1.1 mg/dL (0.0-1.0); TOTAL PROTEIN, SERUM 7.3 g/dL (6.4-8.2); UREA NITROGEN, BLOOD 18 mg/dL (7-18)
[2023-01-09] MEDS ORDERED: MORPHINE SULFATE 4 MG/ML SYR IVP PRN (17:35)
[2023-01-09] MEDS ORDERED: MAG SULF 2000 MG/WATER PREMIX 50 ML IV PRN (17:35)
[2023-01-09] MEDS ORDERED: ONDANSETRON 4 MG/2 ML VIAL IVP PRN (17:35)
[2023-01-09] MEDS ORDERED: POTASSIUM CHLORIDE 10 MEQ TABER PO PRN (17:35)
[2023-01-09] MEDS ORDERED: KCL 20 MEQ IN 100 mL PREMIX 200 ML IV PRN (17:35)
[2023-01-09] MEDS ORDERED: APIX5TAB PO (18:20)
[2023-01-10] VITALS (12 sets, daily range): BP systolic 98–146; BP diastolic 47–89; PULSE 38–56; RESP 11–20; TEMP 97–97.6; O2SAT 90–100
[2023-01-10 04:43] LABS: BASOPHILS % (AUTO) 0.9 % (0.0-2.0); EOSINOPHILS # (AUTO) 0.1 K/uL (0-0.4); EOSINOPHILS % (AUTO) 2.6 % (0.0-4.0); HEMATOCRIT 41.1 % (36-52); HEMOGLOBIN 13.6 g/dL (12.0-18.0); LYMPHOCYTES % (AUTO) 23.7 % (20.5-51.1); MEAN CORPUSCULAR HEMOGLOBIN 28 pg (27-31); MEAN CORPUSCULAR HGB CONC 33 g/dL (33-37); MEAN CORPUSCULAR VOLUME 84.4 fL (80-94); MONOCYTES # (AUTO) 0.3 K/uL (0.8-1.0); MONOCYTES % (AUTO) 8.3 % (1.7-9.3); NEUTROPHILS # (AUTO) 2.6 K/uL (1.8-7.7); NEUTROPHILS % (AUTO) 64.5 % (42.2-75.2); PLATELET COUNT (AUTO) 58 K/uL (140-450); RED BLOOD CELL COUNT(AUTO) 4.86 MIL/uL (4.20-6.10); RED CELL DISTRIBUTION WIDTH 14.7 % (11.6-13.7); WHITE BLOOD COUNT (AUTO) 4.1 K/uL (4.8-10.8)
[2023-01-10 05:25] LABS: ALBUMIN 3.5 g/dL (3.4-5.0); ANION GAP 11.3 (8-16); CALCIUM 8.5 mg/dL (8.5-10.1); CARBON DIOXIDE 27.7 mmol/L (21-32); CREATININE 0.8 mg/dL (0.6-1.3); MAGNESIUM 2.2 mg/dL (1.8-2.4); TOTAL BILIRUBIN 1.1 mg/dL (0.0-1.0); TOTAL PROTEIN, SERUM 6.4 g/dL (6.4-8.2)
[2023-01-10] MEDS ORDERED: APIXABAN 2.5 MG TAB PO SCH (09:00)
[2023-01-10] MEDS: NACL 0.9% 1,000 ML IV SCH ×2 (11:15→23:45)
[2023-01-10] MEDS ORDERED: LOVENOX 1MG/KG Q12H SUBQ SCH (18:50)
[2023-01-11] VITALS (15 sets, daily range): BP systolic 119–138; BP diastolic 60–87; PULSE 40–68; RESP 14–23; TEMP 97–98.2; O2SAT 93–100
[2023-01-11 05:14] LABS: BASOPHILS % (AUTO) 0.7 % (0.0-2.0); EOSINOPHILS # (AUTO) 0.1 K/uL (0-0.4); EOSINOPHILS % (AUTO) 2.9 % (0.0-4.0); HEMATOCRIT 41.7 % (36-52); HEMOGLOBIN 13.9 g/dL (12.0-18.0); LYMPHOCYTES # (AUTO) 0.9 K/uL (2.0-11.5); LYMPHOCYTES % (AUTO) 23.3 % (20.5-51.1); MEAN CORPUSCULAR HEMOGLOBIN 28 pg (27-31); MEAN CORPUSCULAR HGB CONC 33 g/dL (33-37); MEAN CORPUSCULAR VOLUME 84.8 fL (80-94); MONOCYTES # (AUTO) 0.3 K/uL (0.8-1.0); MONOCYTES % (AUTO) 8.2 % (1.7-9.3); NEUTROPHILS # (AUTO) 2.5 K/uL (1.8-7.7); NEUTROPHILS % (AUTO) 64.9 % (42.2-75.2); PLATELET COUNT (AUTO) 57 K/uL (140-450); RED BLOOD CELL COUNT(AUTO) 4.92 MIL/uL (4.20-6.10); RED CELL DISTRIBUTION WIDTH 14.4 % (11.6-13.7); WHITE BLOOD COUNT (AUTO) 3.8 K/uL (4.8-10.8)
[2023-01-11 06:34] LABS: ALBUMIN 3.3 g/dL (3.4-5.0); ANION GAP 10.2 (8-16); CALCIUM 8.3 mg/dL (8.5-10.1); CARBON DIOXIDE 27.6 mmol/L (21-32); CREATININE 0.6 mg/dL (0.6-1.3); MAGNESIUM 1.8 mg/dL (1.8-2.4); POTASSIUM 3.8 mmol/L (3.5-5.1); TOTAL BILIRUBIN 0.7 mg/dL (0.0-1.0); TOTAL PROTEIN, SERUM 6.2 g/dL (6.4-8.2)
[2023-01-11] MEDS: ECOTRIN 81 MG TABEC PO SCH (08:11)
[2023-01-11] MEDS: ATORVASTATIN 20 MG TAB PO SCH (08:12)
[2023-01-11] MEDS: NACL 0.9% 1,000 ML IV SCH (12:15)
[2023-01-11] MEDS: ALBUTEROL SULFATE/IPRATROPIU 3 ML SOL IH PRN ×3 (16:06→23:26)
[2023-01-11] MEDS: ACETAMINOPHEN 325 MG TAB PO PRN (21:21)
[2023-01-12] VITALS (12 sets, daily range): BP systolic 118–154; BP diastolic 52–88; PULSE 40–83; RESP 14–21; TEMP 96.7–98.1; O2SAT 95–99
[2023-01-12] MEDS: NACL 0.9% 1,000 ML IV SCH (00:45)
[2023-01-12 06:06] LABS: BASOPHILS % (AUTO) 0.9 % (0.0-2.0); EOSINOPHILS # (AUTO) 0.1 K/uL (0-0.4); EOSINOPHILS % (AUTO) 3.1 % (0.0-4.0); HEMATOCRIT 42.8 % (36-52); HEMOGLOBIN 14.2 g/dL (12.0-18.0); LYMPHOCYTES # (AUTO) 0.8 K/uL (2.0-11.5); LYMPHOCYTES % (AUTO) 21.3 % (20.5-51.1); MEAN CORPUSCULAR HEMOGLOBIN 28 pg (27-31); MEAN CORPUSCULAR HGB CONC 33 g/dL (33-37); MEAN CORPUSCULAR VOLUME 84.1 fL (80-94); MONOCYTES # (AUTO) 0.3 K/uL (0.8-1.0); MONOCYTES % (AUTO) 8.5 % (1.7-9.3); NEUTROPHILS # (AUTO) 2.3 K/uL (1.8-7.7); NEUTROPHILS % (AUTO) 66.2 % (42.2-75.2); PLATELET COUNT (AUTO) 52 K/uL (140-450); RED BLOOD CELL COUNT(AUTO) 5.09 MIL/uL (4.20-6.10); RED CELL DISTRIBUTION WIDTH 14.7 % (11.6-13.7); WHITE BLOOD COUNT (AUTO) 3.5 K/uL (4.8-10.8)
[2023-01-12 06:30] LABS: ALBUMIN 3.5 g/dL (3.4-5.0); ANION GAP 12.3 (8-16); CALCIUM 8.5 mg/dL (8.5-10.1); CARBON DIOXIDE 28.3 mmol/L (21-32); CREATININE 0.6 mg/dL (0.6-1.3); MAGNESIUM 1.8 mg/dL (1.8-2.4); POTASSIUM 3.6 mmol/L (3.5-5.1); TOTAL BILIRUBIN 0.8 mg/dL (0.0-1.0); TOTAL PROTEIN, SERUM 6.4 g/dL (6.4-8.2)
[2023-01-12] MEDS: ECOTRIN 81 MG TABEC PO SCH (08:44)
[2023-01-12] MEDS: ATORVASTATIN 20 MG TAB PO SCH (08:45)
[2023-01-12] MEDS ORDERED: buprenorphine HCL 2 MG sublingual tab SL SCH (09:00)
[2023-01-12] MEDS: MAGNESIUM OXIDE 400 MG TAB PO PRN (09:56)
[2023-01-12] MEDS ORDERED: HYDROcodone/APAP 5/325 MG 1 TAB TAB ONE (10:36)
[2023-01-12] MEDS: HYDROcodone/APAP 5/325 MG 1 TAB TAB PO PRN (10:38)
[2023-01-12] MEDS: ALBUTEROL SULFATE/IPRATROPIU 3 ML SOL IH PRN ×2 (10:42→16:10)
[2023-01-12] MEDS: HYDROcodone/APAP 10/325 MG 1 TAB TAB PO PRN ×2 (15:30→19:59)
[2023-01-12] MEDS ORDERED: COMMUNICATION ORDER MC SCH (21:00)
[2023-01-12] MEDS ORDERED: [UNRECOGNIZED DRUG - OTHER] PO SCH (21:00)
[2023-01-13] VITALS (11 sets, daily range): BP systolic 113–141; BP diastolic 76–86; PULSE 47–75; RESP 16–21; TEMP 97–98.7; O2SAT 95–100
[2023-01-13] MEDS: HYDROcodone/APAP 5/325 MG 1 TAB TAB PO PRN ×4 (00:17→16:13)
[2023-01-13] MEDS: HYDROcodone/APAP 10/325 MG 1 TAB TAB PO PRN ×2 (02:11→20:37)
[2023-01-13] MEDS: ALBUTEROL SULFATE/IPRATROPIU 3 ML SOL IH PRN ×3 (02:19→21:13)
[2023-01-13 04:31] LABS: BASOPHILS % (AUTO) 1.1 % (0.0-2.0); EOSINOPHILS # (AUTO) 0.1 K/uL (0-0.4); EOSINOPHILS % (AUTO) 3.3 % (0.0-4.0); HEMATOCRIT 41.3 % (36-52); LYMPHOCYTES # (AUTO) 0.7 K/uL (2.0-11.5); LYMPHOCYTES % (AUTO) 20.5 % (20.5-51.1); MEAN CORPUSCULAR HEMOGLOBIN 28 pg (27-31); MEAN CORPUSCULAR HGB CONC 34 g/dL (33-37); MONOCYTES # (AUTO) 0.3 K/uL (0.8-1.0); MONOCYTES % (AUTO) 8.3 % (1.7-9.3); NEUTROPHILS # (AUTO) 2.3 K/uL (1.8-7.7); NEUTROPHILS % (AUTO) 66.8 % (42.2-75.2); PLATELET COUNT (AUTO) 53 K/uL (140-450); RED BLOOD CELL COUNT(AUTO) 4.97 MIL/uL (4.20-6.10); RED CELL DISTRIBUTION WIDTH 14.6 % (11.6-13.7); WHITE BLOOD COUNT (AUTO) 3.5 K/uL (4.8-10.8)
[2023-01-13 04:52] LABS: ALBUMIN 3.5 g/dL (3.4-5.0); ANION GAP 11.2 (8-16); CALCIUM 8.2 mg/dL (8.5-10.1); CARBON DIOXIDE 27.5 mmol/L (21-32); CREATININE 0.7 mg/dL (0.6-1.3); MAGNESIUM 1.7 mg/dL (1.8-2.4); POTASSIUM 3.7 mmol/L (3.5-5.1); TOTAL BILIRUBIN 0.8 mg/dL (0.0-1.0); TOTAL PROTEIN, SERUM 6.5 g/dL (6.4-8.2)
[2023-01-13] MEDS: ECOTRIN 81 MG TABEC PO SCH (08:52)
[2023-01-13] MEDS: ATORVASTATIN 20 MG TAB PO SCH (08:52)
[2023-01-13] MEDS: MAGNESIUM OXIDE 400 MG TAB PO PRN (09:33)
[2023-01-14] VITALS (9 sets, daily range): BP systolic 123–139; BP diastolic 77–87; PULSE 45–69; RESP 16–19; TEMP 95.9–98.5; O2SAT 96–100
[2023-01-14 05:20] LABS: BASOPHILS % (AUTO) 1.1 % (0.0-2.0); EOSINOPHILS # (AUTO) 0.1 K/uL (0-0.4); EOSINOPHILS % (AUTO) 3.2 % (0.0-4.0); HEMATOCRIT 42.4 % (36-52); HEMOGLOBIN 14.1 g/dL (12.0-18.0); LYMPHOCYTES # (AUTO) 0.7 K/uL (2.0-11.5); LYMPHOCYTES % (AUTO) 21.3 % (20.5-51.1); MEAN CORPUSCULAR HEMOGLOBIN 28 pg (27-31); MEAN CORPUSCULAR HGB CONC 33 g/dL (33-37); MEAN CORPUSCULAR VOLUME 84.8 fL (80-94); MONOCYTES # (AUTO) 0.3 K/uL (0.8-1.0); MONOCYTES % (AUTO) 9.4 % (1.7-9.3); NEUTROPHILS # (AUTO) 2.2 K/uL (1.8-7.7); PLATELET COUNT (AUTO) 50 K/uL (140-450); RED CELL DISTRIBUTION WIDTH 14.5 % (11.6-13.7); WHITE BLOOD COUNT (AUTO) 3.4 K/uL (4.8-10.8)
[2023-01-14 05:33] LABS: ALBUMIN 3.6 g/dL (3.4-5.0); ANION GAP 10.8 (8-16); CALCIUM 8.4 mg/dL (8.5-10.1); CARBON DIOXIDE 30.3 mmol/L (21-32); CREATININE 0.8 mg/dL (0.6-1.3); MAGNESIUM 1.8 mg/dL (1.8-2.4); POTASSIUM 4.1 mmol/L (3.5-5.1); TOTAL BILIRUBIN 1.2 mg/dL (0.0-1.0); TOTAL PROTEIN, SERUM 6.4 g/dL (6.4-8.2)
[2023-01-14] MEDS: HYDROcodone/APAP 10/325 MG 1 TAB TAB PO PRN ×3 (06:01→22:43)
[2023-01-14] MEDS: ALBUTEROL SULFATE/IPRATROPIU 3 ML SOL IH PRN (09:15)
[2023-01-14] MEDS: ATORVASTATIN 20 MG TAB PO SCH (09:17)
[2023-01-14] MEDS: ECOTRIN 81 MG TABEC PO SCH (09:17)
[2023-01-15] VITALS (10 sets, daily range): BP systolic 125–139; BP diastolic 64–84; PULSE 46–69; RESP 16–19; TEMP 97–98.6; O2SAT 94–98
[2023-01-15] MEDS: ACETAMINOPHEN 325 MG TAB PO PRN (05:42)
[2023-01-15] MEDS: ECOTRIN 81 MG TABEC PO SCH (08:49)
[2023-01-15] MEDS: ATORVASTATIN 20 MG TAB PO SCH (08:49)
[2023-01-15] MEDS: HYDROcodone/APAP 10/325 MG 1 TAB TAB PO PRN (08:50)
[2023-01-15] MEDS: ALBUTEROL SULFATE/IPRATROPIU 3 ML SOL IH PRN (17:32)
[2023-01-15] MEDS: HYDROcodone/APAP 5/325 MG 1 TAB TAB PO PRN (19:52)
[2023-01-15] MEDS ORDERED: ZOLPIDEM 5 MG TAB PO ONE (23:50)
[2023-01-16] VITALS (8 sets, daily range): BP systolic 114–136; BP diastolic 60–83; PULSE 48–89; RESP 18; TEMP 97.5–98.2; O2SAT 94–98
[2023-01-16] MEDS: HYDROcodone/APAP 10/325 MG 1 TAB TAB PO PRN ×2 (07:43→17:18)
[2023-01-16] MEDS: ATORVASTATIN 20 MG TAB PO SCH (08:25)
[2023-01-16] MEDS: ECOTRIN 81 MG TABEC PO SCH (08:26)
[2023-01-16] MEDS: ALBUTEROL SULFATE/IPRATROPIU 3 ML SOL IH PRN (15:04)
== END 2023-01-16 18:06 | disposition home or self-care (01) | DRG 281 ==
LOC: MED 14:53 → MIC 17:30 → MTU 01-12 22:00
PROVIDERS: ADMIT Hospitalist; ATTEND Hospitalist
DX: I47.20 Ventricular tachycardia, unspecified (principal); I21.A1 Myocardial infarction type 2; I38 Endocarditis, valve unspecified; I48.20 Chronic atrial fibrillation, unspecified; I10 Essential (primary) hypertension; R00.1 Bradycardia, unspecified; Z20.822 Contact with and (suspected) exposure to COVID-19; E11.9 Type 2 diabetes mellitus without complications; I25.10 Atherosclerotic heart disease of native coronary artery without angina pectoris; I44.7 Left bundle-branch block, unspecified; D69.6 Thrombocytopenia, unspecified; I25.2 Old myocardial infarction; Z85.828 Personal history of other malignant neoplasm of skin; Z79.899 Other long term (current) drug therapy; Z88.1 Allergy status to other antibiotic agents; Z95.3 Presence of xenogenic heart valve; Z79.01 Long term (current) use of anticoagulants; Z79.2 Long term (current) use of antibiotics; Z89.411 Acquired absence of right great toe
CPT/HCPCS: 36415; 71045; 80053; 82948; 83735; 84484; 85025; 85610; 85730; 87081; 93005; 94640; 96374; 99285; J0282; J3475; J7060

== ENCOUNTER 2023-02-18 19:57 | Emergency (ER) | payer OTHER ==
[~2023-02-18] VITALS: Ht 180.3 cm; Wt 118.8 kg
[2023-02-18 20:35] VITALS: BP 127/90; PULSE 68; RESP 14; TEMP 98.9; O2SAT 100
[2023-02-18] MEDS ORDERED: ATA25 PO (21:38)
[2023-02-18 21:46] VITALS: BP 112/68; PULSE 58; RESP 14; TEMP 98.9; O2SAT 95
== END 2023-02-18 21:46 | disposition home or self-care (01) ==
LOC: MED 19:57
DX: H92.01 Otalgia, right ear (principal); F41.9 Anxiety disorder, unspecified; I11.9 Hypertensive heart disease without heart failure; E11.9 Type 2 diabetes mellitus without complications; Z79.4 Long term (current) use of insulin; Z79.899 Other long term (current) drug therapy
CPT/HCPCS: 99282

== ENCOUNTER 2023-08-28 19:37 | Inpatient (IN) | payer BC, OTHER ==
[~2023-08-28] VITALS: Ht 180.3 cm; Wt 114.3 kg
[~2023-08-28 19:37] MED LIST changes: -ACET-8905 PO; -ACET-9525 PO; -ALBU3SOL83 IH; +ATA25 PO; -EMPA25TA PO; -FEXO1TAB16 PO; -HUMSLIDE SUBQ; -HYDR-635 PO; -LAS20I IVP; -MECL-303 PO; -METO50TE2 PO; -ROC1PM IV; -VIT D3 PO
[2023-08-28 19:45] VITALS: BP 158/95; PULSE 71; RESP 18; TEMP 98.3; O2SAT 100
[2023-08-28] MEDS ORDERED: cefTRIAXone 1,000 MG VIAL ONE (20:25)
[2023-08-28] MEDS: ASPIRIN 81 MG TAB.CHEW PO ONE (20:26)
[2023-08-28 20:29] LABS: BASOPHILS % (AUTO) 0.1 % (0.0-2.0); EOSINOPHILS % (AUTO) 0.1 % (0.0-4.0); HEMATOCRIT 45.1 % (36-52); HEMOGLOBIN 15.4 g/dL (12.0-18.0); LYMPHOCYTES # (AUTO) 0.4 K/uL (2.0-11.5); LYMPHOCYTES % (AUTO) 4.1 % (20.5-51.1); MEAN CORPUSCULAR HEMOGLOBIN 28 pg (27-31); MEAN CORPUSCULAR HGB CONC 34 g/dL (33-37); MEAN CORPUSCULAR VOLUME 83.2 fL (80-94); MONOCYTES # (AUTO) 0.3 K/uL (0.8-1.0); MONOCYTES % (AUTO) 2.8 % (1.7-9.3); NEUTROPHILS # (AUTO) 8.2 K/uL (1.8-7.7); NEUTROPHILS % (AUTO) 92.9 % (42.2-75.2); PLATELET COUNT (AUTO) 49 K/uL (140-450); RED BLOOD CELL COUNT(AUTO) 5.43 MIL/uL (4.20-6.10); RED CELL DISTRIBUTION WIDTH 15.4 % (11.6-13.7); WHITE BLOOD COUNT (AUTO) 8.8 K/uL (4.8-10.8)
[2023-08-28] MEDS: MORPHINE SULFATE 4 MG/ML SYR IVP ONE ×2 (20:39→22:34)
[2023-08-28] MEDS: cefTRIAXone 1,000 MG in DEXT 5% MINI-BAG PLUS 50 ML IV ONE (20:39)
[2023-08-28 20:40] LABS: ANION GAP 12.8 (8-16); CALCIUM 8.8 mg/dL (8.5-10.1); CARBON DIOXIDE 28.8 mmol/L (21-32); CREATININE 0.8 mg/dL (0.6-1.3); POTASSIUM 3.6 mmol/L (3.5-5.1)
[2023-08-28] MEDS: ONDANSETRON 4 MG/2 ML VIAL IVP ONE (20:43)
[2023-08-28] MEDS: NACL 0.9% 1,000 ML IV SCH (20:45)
[2023-08-28 20:49] LABS: LACTIC ACID 1.5 mmol/L (0.4-2.0)
[2023-08-28 21:27] LABS: APPEARANCE,URINE CLEAR (CLEAR); BILIRUBIN,URINE NEGATIVE (NEGATIVE); BLOOD, URINE NEGATIVE (NEGATIVE); COLOR,URINE YELLOW (YELLOW); LEUKOCYTE ESTERASE ,URINE NEGATIVE (NEGATIVE); NITRITE, URINE NEGATIVE (NEGATIVE); PROTEIN,URINE 1+ (NEGATIVE); UGLUCOSE 3+ (NEGATIVE); UROBILINOGEN,URINE 0.2 EU/dL (0.2 - 1)
[2023-08-28 21:37] LABS: BACTERIA,URINE None Seen /HPF (None Seen); MUCUS,URINE None Seen /LPF (None Seen); RBC,URINE 0 /HPF (0-5); SQUAMOUS EPITHELIAL CELL,UR None Seen /LPF (0-3 (FEW)); TRICHOMONAS,URINE None Seen /HPF (None Seen); WBC,URINE 0 /HPF (0-5); WHITE BLOOD CELL CASTS,URINE None Seen /LPF (None Seen); YEAST,URINE None Seen /HPF (None Seen)
[2023-08-28] MEDS ORDERED: PRED20TA6 PO (21:41)
[2023-08-28] MEDS ORDERED: OXYM30SP NS (21:41)
[2023-08-28 21:55] LABS: FLU A ANTIGEN negative (NEGATIVE)
[2023-08-28 21:56] LABS: FLU B ANTIGEN NEGATIVE (NEGATIVE)
[2023-08-28] MEDS ORDERED: ONDANSETRON 4 MG/2 ML VIAL IVP PRN (22:40)
[2023-08-28 23:55] VITALS: PULSE 63; RESP 19; O2SAT 95
[2023-08-29] MEDS: MORPHINE SULFATE 2 MG/ML SYR IVP PRN (01:41)
[2023-08-29] MEDS: ACETAMINOPHEN 325 MG TAB PO PRN (03:11)
[2023-08-29 04:00] VITALS: BP 109/56; PULSE 70; PULSE 71; RESP 19; TEMP 97.5; O2SAT 96
[2023-08-29 07:03] LABS: BASOPHILS % (AUTO) 0.1 % (0.0-2.0); HEMATOCRIT 40.5 % (36-52); HEMOGLOBIN 13.8 g/dL (12.0-18.0); LYMPHOCYTES # (AUTO) 0.5 K/uL (2.0-11.5); MEAN CORPUSCULAR HEMOGLOBIN 28 pg (27-31); MEAN CORPUSCULAR HGB CONC 34 g/dL (33-37); MEAN CORPUSCULAR VOLUME 82.8 fL (80-94); MONOCYTES # (AUTO) 0.9 K/uL (0.8-1.0); MONOCYTES % (AUTO) 6.8 % (1.7-9.3); NEUTROPHILS # (AUTO) 11.2 K/uL (1.8-7.7); NEUTROPHILS % (AUTO) 89.1 % (42.2-75.2); PLATELET COUNT (AUTO) 42 K/uL (140-450); RED CELL DISTRIBUTION WIDTH 15.2 % (11.6-13.7); WHITE BLOOD COUNT (AUTO) 12.6 K/uL (4.8-10.8)
[2023-08-29 07:29] LABS: ALBUMIN 3.8 g/dL (3.4-5.0); ANION GAP 13.2 (8-16); CALCIUM 8.4 mg/dL (8.5-10.1); CARBON DIOXIDE 26.5 mmol/L (21-32); CREATININE 0.9 mg/dL (0.6-1.3); MAGNESIUM 1.8 mg/dL (1.8-2.4); POTASSIUM 3.7 mmol/L (3.5-5.1); TOTAL BILIRUBIN 2.6 mg/dL (0.0-1.0); TOTAL PROTEIN, SERUM 6.5 g/dL (6.4-8.2)
[2023-08-29 08:00] VITALS: BP 128/75; PULSE 68; PULSE 72; PULSE 75; RESP 18; RESP 19; TEMP 97.8; O2SAT 98
[2023-08-29 12:00] VITALS: BP 96/67; PULSE 47; PULSE 70; RESP 18; TEMP 97.6; O2SAT 98
[2023-08-29 16:00] VITALS: BP 100/58; PULSE 60; RESP 19; TEMP 97.3; O2SAT 97
[2023-08-29 20:00] VITALS: BP 92/51; PULSE 55; PULSE 75; RESP 18; RESP 22; TEMP 97.7; O2SAT 98
[2023-08-29 20:04] VITALS: PULSE 48
[2023-08-29] MEDS: AZITHROMYCIN 500 MG in DEXTROSE 5% 250 ML IV SCH (22:51)
[2023-08-30] VITALS (8 sets, daily range): BP systolic 107–135; BP diastolic 59–88; PULSE 48–69; RESP 18–21; TEMP 96–97.6; O2SAT 94–100
[2023-08-30] MEDS: cefTRIAXone 2,000 MG in DEXTROSE 5% 100 ML IV SCH (00:30)
[2023-08-30] MEDS ORDERED: VANCOMYCIN PER PHARMACY MC PRN (12:10)
[2023-08-30] MEDS: LINEZOLID 600MG PREMIX 300 ML IV SCH (17:56)
[2023-08-30] MEDS: traMADol 50 MG TAB PO PRN (21:29)
[2023-08-31] VITALS (7 sets, daily range): BP systolic 130–158; BP diastolic 80–101; PULSE 42–67; RESP 18–20; TEMP 97–97.3; O2SAT 94–99
[2023-08-31] MEDS: cefTRIAXone 2,000 MG VIAL ONE (00:57)
[2023-08-31] MEDS: GENTAMICIN IV ONE (01:00)
[2023-08-31] MEDS: DEXTROSE 5% IV ONE (01:00)
[2023-08-31] MEDS: LINEZOLID 600MG PREMIX 300 ML IV ONE (06:44)
[2023-08-31] MEDS ORDERED: OMEP20EC11 PO (14:19)
[2023-08-31] MEDS ORDERED: APIX5TAB PO (14:19)
[2023-08-31] MEDS ORDERED: LISI5TAB18 PO (14:19)
[2023-08-31] MEDS ORDERED: FINA5TAB5 PO (14:19)
[2023-08-31] MEDS ORDERED: TAMS0.4C97 PO (14:19)
[2023-08-31] MEDS ORDERED: SPIR25TA20 PO (14:19)
[2023-08-31] MEDS ORDERED: ATOR40TA PO (14:19)
[2023-08-31] MEDS ORDERED: BUPR8TAB3 SL (14:39)
[2023-08-31] MEDS ORDERED: EMPA10TA PO (14:39)
[2023-08-31] MEDS: FUROSEMIDE 20 MG/2 ML VIAL IVP ONE (18:54)
[2023-08-31] MEDS ORDERED: GENTAMICIN PER PHARMACY MC PRN (20:10)
[2023-08-31] MEDS: PENICILLIN POTASSIUM MU IV SCH (21:30)
[2023-08-31] MEDS: NACL IV SCH (21:30)
[2023-08-31] MEDS: TAMSULOSIN 0.4 MG CAP PO SCH (21:34)
[2023-08-31] MEDS: ATORVASTATIN 20 MG TAB PO SCH (21:34)
[2023-08-31] MEDS: hydrALAZINE 25 MG TAB PO PRN (21:47)
[2023-09-01] VITALS (7 sets, daily range): BP systolic 112–144; BP diastolic 71–89; PULSE 36–60; RESP 16–19; TEMP 97.3–98.7; O2SAT 96–98
[2023-09-01] MEDS ORDERED: GENTAMICIN 80 MG/2 ML VIAL ONE (00:37)
[2023-09-01] MEDS: ALPRAZolam 0.5 MG TAB PO PRN (02:35)
[2023-09-01] MEDS: lisinopriL 5 MG TAB PO SCH (08:13)
[2023-09-01] MEDS: SPIRONOLACTONE 25 MG TAB PO SCH (08:17)
[2023-09-01] MEDS: FINASTERIDE 5 MG TAB PO SCH (08:17)
[2023-09-01] MEDS: PANTOPRAZOLE 40 MG TABEC PO SCH (08:17)
[2023-09-01] MEDS ORDERED: NON-FORMULARY ITEM (Omeprazole* (Prilosec*) 20 MG) PO SCH (09:00)
[2023-09-01 11:49] LABS: ANION GAP 10.1 (8-16); CALCIUM 8.2 mg/dL (8.5-10.1); CARBON DIOXIDE 29.5 mmol/L (21-32); CREATININE 0.6 mg/dL (0.6-1.3); POTASSIUM 3.6 mmol/L (3.5-5.1)
[2023-09-01] MEDS ORDERED: GENTAMICIN 300 MG in DEXTROSE 5% 100 ML IV SCH (15:00)
[2023-09-01 16:45] LABS: BASOPHILS % (AUTO) 0.7 % (0.0-2.0); EOSINOPHILS # (AUTO) 0.1 K/uL (0-0.4); EOSINOPHILS % (AUTO) 2.4 % (0.0-4.0); HEMATOCRIT 39.6 % (36-52); HEMOGLOBIN 13.4 g/dL (12.0-18.0); LYMPHOCYTES # (AUTO) 0.6 K/uL (2.0-11.5); LYMPHOCYTES % (AUTO) 16.4 % (20.5-51.1); MEAN CORPUSCULAR HEMOGLOBIN 28 pg (27-31); MEAN CORPUSCULAR HGB CONC 34 g/dL (33-37); MEAN CORPUSCULAR VOLUME 82.9 fL (80-94); MONOCYTES # (AUTO) 0.4 K/uL (0.8-1.0); MONOCYTES % (AUTO) 11.9 % (1.7-9.3); NEUTROPHILS # (AUTO) 2.4 K/uL (1.8-7.7); NEUTROPHILS % (AUTO) 68.6 % (42.2-75.2); PLATELET COUNT (AUTO) 48 K/uL (140-450); RED BLOOD CELL COUNT(AUTO) 4.77 MIL/uL (4.20-6.10); RED CELL DISTRIBUTION WIDTH 15.4 % (11.6-13.7); WHITE BLOOD COUNT (AUTO) 3.5 K/uL (4.8-10.8)
[2023-09-01 17:11] LABS: ALBUMIN 3.4 g/dL (3.4-5.0); BILIRUBIN,DIRECT 0.3 mg/dL (0.0-0.3); TOTAL BILIRUBIN 1.1 mg/dL (0.0-1.0)
[2023-09-01] MEDS: GENTAMICIN 300 MG in DEXTROSE 5% 100 ML IV SCH (20:45)
[2023-09-02] VITALS (7 sets, daily range): BP systolic 133–145; BP diastolic 78–85; PULSE 42–66; RESP 15–18; TEMP 97.1–98.7; O2SAT 95–99
[2023-09-02 05:42] LABS: ANION GAP 11.6 (8-16); CALCIUM 8.5 mg/dL (8.5-10.1); CARBON DIOXIDE 28.4 mmol/L (21-32); CREATININE 0.6 mg/dL (0.6-1.3)
[2023-09-02 05:55] LABS: BASOPHILS % (AUTO) 0.8 % (0.0-2.0); EOSINOPHILS # (AUTO) 0.1 K/uL (0-0.4); EOSINOPHILS % (AUTO) 2.1 % (0.0-4.0); HEMATOCRIT 39.4 % (36-52); HEMOGLOBIN 13.5 g/dL (12.0-18.0); LYMPHOCYTES # (AUTO) 0.6 K/uL (2.0-11.5); LYMPHOCYTES % (AUTO) 17.7 % (20.5-51.1); MEAN CORPUSCULAR HEMOGLOBIN 28 pg (27-31); MEAN CORPUSCULAR HGB CONC 34 g/dL (33-37); MEAN CORPUSCULAR VOLUME 82.7 fL (80-94); MONOCYTES # (AUTO) 0.4 K/uL (0.8-1.0); MONOCYTES % (AUTO) 11.3 % (1.7-9.3); NEUTROPHILS # (AUTO) 2.2 K/uL (1.8-7.7); NEUTROPHILS % (AUTO) 68.1 % (42.2-75.2); PLATELET COUNT (AUTO) 46 K/uL (140-450); RED BLOOD CELL COUNT(AUTO) 4.76 MIL/uL (4.20-6.10); RED CELL DISTRIBUTION WIDTH 15.1 % (11.6-13.7); WHITE BLOOD COUNT (AUTO) 3.3 K/uL (4.8-10.8)
[2023-09-02] MEDS ORDERED: LORazepam 2 MG/ML VIAL IVP PRN (09:00)
[2023-09-03] VITALS (7 sets, daily range): BP systolic 127–141; BP diastolic 55–90; PULSE 45–65; RESP 18–19; TEMP 97–97.9; O2SAT 95–98
[2023-09-03 05:34] LABS: BASOPHILS % (AUTO) 0.7 % (0.0-2.0); EOSINOPHILS # (AUTO) 0.1 K/uL (0-0.4); EOSINOPHILS % (AUTO) 1.6 % (0.0-4.0); HEMATOCRIT 39.1 % (36-52); HEMOGLOBIN 13.3 g/dL (12.0-18.0); LYMPHOCYTES # (AUTO) 0.8 K/uL (2.0-11.5); LYMPHOCYTES % (AUTO) 20.8 % (20.5-51.1); MEAN CORPUSCULAR HEMOGLOBIN 28 pg (27-31); MEAN CORPUSCULAR HGB CONC 34 g/dL (33-37); MEAN CORPUSCULAR VOLUME 82.9 fL (80-94); MONOCYTES # (AUTO) 0.4 K/uL (0.8-1.0); MONOCYTES % (AUTO) 10.9 % (1.7-9.3); NEUTROPHILS # (AUTO) 2.5 K/uL (1.8-7.7); PLATELET COUNT (AUTO) 46 K/uL (140-450); RED BLOOD CELL COUNT(AUTO) 4.71 MIL/uL (4.20-6.10); RED CELL DISTRIBUTION WIDTH 14.9 % (11.6-13.7); WHITE BLOOD COUNT (AUTO) 3.8 K/uL (4.8-10.8)
[2023-09-03 11:44] LABS: ANION GAP 9.9 (8-16); CALCIUM 8.5 mg/dL (8.5-10.1); CARBON DIOXIDE 29.2 mmol/L (21-32); CREATININE 0.7 mg/dL (0.6-1.3); POTASSIUM 4.1 mmol/L (3.5-5.1)
[2023-09-04] VITALS (9 sets, daily range): BP systolic 106–145; BP diastolic 72–88; PULSE 45–84; RESP 18–19; TEMP 97–97.8; O2SAT 95–98
[2023-09-04 06:49] LABS: BASOPHILS % (AUTO) 0.4 % (0.0-2.0); EOSINOPHILS # (AUTO) 0.1 K/uL (0-0.4); EOSINOPHILS % (AUTO) 1.6 % (0.0-4.0); LYMPHOCYTES # (AUTO) 0.7 K/uL (2.0-11.5); LYMPHOCYTES % (AUTO) 17.2 % (20.5-51.1); MEAN CORPUSCULAR HEMOGLOBIN 28 pg (27-31); MEAN CORPUSCULAR HGB CONC 34 g/dL (33-37); MEAN CORPUSCULAR VOLUME 82.8 fL (80-94); MONOCYTES # (AUTO) 0.4 K/uL (0.8-1.0); MONOCYTES % (AUTO) 10.5 % (1.7-9.3); NEUTROPHILS # (AUTO) 2.7 K/uL (1.8-7.7); NEUTROPHILS % (AUTO) 70.3 % (42.2-75.2); PLATELET COUNT (AUTO) 48 K/uL (140-450); RED BLOOD CELL COUNT(AUTO) 4.95 MIL/uL (4.20-6.10); RED CELL DISTRIBUTION WIDTH 14.9 % (11.6-13.7); WHITE BLOOD COUNT (AUTO) 3.8 K/uL (4.8-10.8)
[2023-09-04 07:16] LABS: ANION GAP 12.1 (8-16); CALCIUM 8.7 mg/dL (8.5-10.1); CREATININE 0.7 mg/dL (0.6-1.3); POTASSIUM 4.1 mmol/L (3.5-5.1)
[2023-09-05] VITALS (9 sets, daily range): BP systolic 110–149; BP diastolic 64–103; PULSE 45–74; RESP 18–20; TEMP 96.9–98.2; O2SAT 94–96
[2023-09-05 06:55] LABS: BASOPHILS % (AUTO) 0.8 % (0.0-2.0); EOSINOPHILS # (AUTO) 0.1 K/uL (0-0.4); HEMATOCRIT 40.8 % (36-52); HEMOGLOBIN 14.2 g/dL (12.0-18.0); LYMPHOCYTES # (AUTO) 0.8 K/uL (2.0-11.5); LYMPHOCYTES % (AUTO) 21.3 % (20.5-51.1); MEAN CORPUSCULAR HEMOGLOBIN 29 pg (27-31); MEAN CORPUSCULAR HGB CONC 35 g/dL (33-37); MEAN CORPUSCULAR VOLUME 81.9 fL (80-94); MONOCYTES # (AUTO) 0.4 K/uL (0.8-1.0); MONOCYTES % (AUTO) 9.7 % (1.7-9.3); NEUTROPHILS # (AUTO) 2.6 K/uL (1.8-7.7); NEUTROPHILS % (AUTO) 66.2 % (42.2-75.2); PLATELET COUNT (AUTO) 49 K/uL (140-450); RED BLOOD CELL COUNT(AUTO) 4.98 MIL/uL (4.20-6.10); RED CELL DISTRIBUTION WIDTH 15.3 % (11.6-13.7); WHITE BLOOD COUNT (AUTO) 3.9 K/uL (4.8-10.8)
[2023-09-05] MEDS: fentaNYL citrate 0.05 MG/ML VIAL ONE (08:59)
[2023-09-05] MEDS: MIDAZOLAM 2 MG/2 ML VIAL ONE (08:59)
[2023-09-05] MEDS: BENZOCAINE 20% 57 GM CAN MC ONE (09:00)
[2023-09-05] MEDS ORDERED: GENTAMICIN PER PHARMACY MC PRN (11:00)
[2023-09-05] MEDS: PENICILLIN POTASSIUM MU IV SCH (11:39)
[2023-09-05] MEDS: NACL IV SCH (11:39)
[2023-09-06 04:00] VITALS: BP 149/86; PULSE 56; RESP 20; TEMP 98.2; O2SAT 97
[2023-09-06 06:59] LABS: BASOPHILS % (AUTO) 0.9 % (0.0-2.0); EOSINOPHILS # (AUTO) 0.1 K/uL (0-0.4); EOSINOPHILS % (AUTO) 3.2 % (0.0-4.0); HEMATOCRIT 40.9 % (36-52); HEMOGLOBIN 13.9 g/dL (12.0-18.0); LYMPHOCYTES # (AUTO) 0.7 K/uL (2.0-11.5); LYMPHOCYTES % (AUTO) 20.9 % (20.5-51.1); MEAN CORPUSCULAR HEMOGLOBIN 28 pg (27-31); MEAN CORPUSCULAR HGB CONC 34 g/dL (33-37); MEAN CORPUSCULAR VOLUME 82.8 fL (80-94); MONOCYTES # (AUTO) 0.3 K/uL (0.8-1.0); MONOCYTES % (AUTO) 9.7 % (1.7-9.3); NEUTROPHILS # (AUTO) 2.3 K/uL (1.8-7.7); NEUTROPHILS % (AUTO) 65.3 % (42.2-75.2); PLATELET COUNT (AUTO) 49 K/uL (140-450); RED BLOOD CELL COUNT(AUTO) 4.94 MIL/uL (4.20-6.10); WHITE BLOOD COUNT (AUTO) 3.5 K/uL (4.8-10.8)
[2023-09-06 08:00] VITALS: BP 118/75; PULSE 63; RESP 18; TEMP 97.2; O2SAT 94
[2023-09-06 09:02] VITALS: PULSE 64; RESP 16; O2SAT 94
[2023-09-06 09:58] LABS: ANION GAP 11.1 (8-16); CALCIUM 8.4 mg/dL (8.5-10.1); CARBON DIOXIDE 29.2 mmol/L (21-32); CREATININE 0.7 mg/dL (0.6-1.3); POTASSIUM 4.3 mmol/L (3.5-5.1)
== END 2023-09-06 19:06 | disposition left against medical advice (07) | DRG 314 ==
LOC: MED 19:37 → MTU 22:40 → OBSVTOIN 08-31 13:44 → MTU 09-03 05:40
PROVIDERS: ADMIT Hospitalist; ATTEND Hospitalist
PROC: B24BZZ4 Ultrasonography of Heart with Aorta, Transesophageal (ICD-10-PCS; principal; 2023-09-06)
PROC: B246ZZ4 Ultrasonography of Right and Left Heart, Transesophageal (ICD-10-PCS; 2023-09-06)
DX: T82.6XXA Infection and inflammatory reaction due to cardiac valve prosthesis, initial encounter (principal); A40.9 Streptococcal sepsis, unspecified; N17.0 Acute kidney failure with tubular necrosis; I50.43 Acute on chronic combined systolic (congestive) and diastolic (congestive) heart failure; I33.0 Acute and subacute infective endocarditis; I48.20 Chronic atrial fibrillation, unspecified; D69.6 Thrombocytopenia, unspecified; H10.412 Chronic giant papillary conjunctivitis, left eye; I11.0 Hypertensive heart disease with heart failure; I25.10 Atherosclerotic heart disease of native coronary artery without angina pectoris; N40.0 Benign prostatic hyperplasia without lower urinary tract symptoms; B95.4 Other streptococcus as the cause of diseases classified elsewhere; E11.9 Type 2 diabetes mellitus without complications; Z79.899 Other long term (current) drug therapy; Z95.2 Presence of prosthetic heart valve; Z88.1 Allergy status to other antibiotic agents
CPT/HCPCS: G0378 ×50; 36415; 71045; 71046; 80048; 80053; 80076; 80170; 81001; 83605; 83735; 83880; 84484; 85025; 87040; 87081; 87086; 87186; 93005; 93313; J0456; J0696; J1580; J1940; J2020; J2250; J2270; J2405; J2540; J3010; J7060; Q0163